=== PATIENT | female | born 1950 | race Caucasian/White ===

== ENCOUNTER 2022-08-01 13:23 | Inpatient (IN) | payer OTHER ==
[2022-08-01] MEDS ORDERED: BUMETANIDE INJECTION 1 MG/4 ML VIAL IVPUSH ONE (14:03)
[2022-08-01 15:25] LABS: VENOUS BASE EXCESS -3.1 mmol/L (-2-2); VENOUS O2 SATURATION 81.1 % (70-80); VENOUS PCO2 34.5 mmHg (38-52); VENOUS PH 7.402 (7.310-7.410)
[2022-08-01 15:35] LABS: BASO % 1.3 % (0-2.0); EOS % 6.9 % (0-4.5); HEMATOCRIT 34.4 % (32.4-45.2); HEMOGLOBIN 11.2 GM/dL (10.7-15.3); LYMPH % 8.9 % (8-40); MCH 28.4 pg (25.7-33.7); MCHC 32.5 g/dl (32.0-36.0); MEAN CELL VOLUME 87.5 fl (80-96); MEAN PLT VOLUME 8.1 fl (7.5-11.1); MONO % 8.6 % (3.8-10.2); NEUT % 74.3 % (42.8-82.8); PLATELET COUNT 447 10^3/uL (134-434); RBC 3.93 M/mm3 (3.60-5.2); WHITE BLOOD COUNT 7.7 K/mm3 (4.0-10.0)
[2022-08-01 15:47] LABS: INR 1.24 (0.83-1.09); PROTHROMBIN TIME (PATIENT) 14.3 SEC (9.7-13.0)
[2022-08-01 15:50] LABS: ACTIVATED PTT 36.6 SECONDS (25.2-36.5)
[2022-08-01 15:58] LABS: CHLORIDE 104 mmol/L (98-107); POTASSIUM 3.4 mmol/L (3.5-5.1); SODIUM 143 mmol/L (136-145)
[2022-08-01 16:00] LABS: ANION GAP 13 MMOL/L (8-16); CALCIUM 8.3 mg/dL (8.5-10.1); CO2 26 mmol/L (21-32)
[2022-08-01 16:01] LABS: ALBUMIN 2.9 g/dl (3.4-5.0); GLUCOSE,RANDOM 55 mg/dL (74-106)
[2022-08-01 16:04] LABS: CREATININE 1.8 mg/dL (0.55-1.3); SGOT/AST 17 U/L (15-37); SGPT/ALT 11 U/L (13-61)
[2022-08-01 16:05] LABS: BILIRUBIN,TOTAL 0.7 mg/dL (0.2-1); TOT PROT 6.7 g/dl (6.4-8.2)
[2022-08-01 16:06] LABS: ALK PHOS 66 U/L (45-117)
[2022-08-01 16:09] LABS: N-TERMINAL BNP 9950.7 pg/ml (5-125)
[2022-08-01 16:20] LABS: MAGNESIUM 0.9 mg/dL (1.8-2.4)
[2022-08-01] MEDS ORDERED: MAGNESIUM SULF 50% (8.12 MEQ/2 ML-1 GM VIAL) IVPB ONE ×2 (16:25→18:57)
[2022-08-01] MEDS ORDERED: MAGNESIUM SULFATE IN WATER 2 GM/50 ML IVPB IVPB ONE (16:50)
[2022-08-01 18:25] LABS: EPI CELLS 6 /uL (0-25.1); HYALINE CASTS 0 /uL (0-3.1); URINE APPEARANCE CLOUDY; URINE BACTERIA 7179 /uL (0-1359); URINE BILIRUBIN NEGATIVE (NEGATIVE); URINE COLOR YELLOW; URINE GLUCOSE (UA) TRACE (NEGATIVE); URINE KETONE NEGATIVE (NEGATIVE); URINE LEUK ESTERASE 3+ (NEGATIVE); URINE NITRITE NEGATIVE (NEGATIVE); URINE PROTEIN 1+ (NEGATIVE); URINE RBC 25 /uL (0-23.9); URINE UROBILINOGEN 0.2 mg/dL (0.2-1.0); URINE WBC 931 /uL (0-25.8)
[2022-08-01] MEDS ORDERED: POTASSIUM CHLORIDE TABS 20 MEQ TABLET.ER (FP) PO ONE (18:57)
[2022-08-01] MEDS ORDERED: RANOLAZINE E.R. 500 MG TABLET (FP) PO PRN (19:02)
[2022-08-01] MEDS: ATORVASTATIN CA 20 MG TABLET (FP) PO SCH (21:40)
[2022-08-01] MEDS: FENOFIBRIC ACID 135 MG CAP PO SCH (21:40)
[2022-08-01] MEDS: AMITRIPTYLINE HCL 25 MG TABLET PO SCH (21:40)
[2022-08-01] MEDS: ASPIRIN COATED 81 MG TABLET.EC PO SCH (21:40)
[2022-08-01] MEDS: CHOLECALCIFEROL (VIT D3) 1,000 UNIT (25 MCG) TABLET PO SCH (21:41)
[2022-08-01] MEDS: HEPARIN NA (PORCINE) 5,000 UNITS/ML 1ML VIAL SQ SCH (21:41)
[2022-08-01] MEDS: INSULIN SLIDING SCALE (NOVOLOG) 1 VIAL SQ SCH (21:41)
[2022-08-02] MEDS: INSULIN SLIDING SCALE (NOVOLOG) 1 VIAL SQ SCH ×4 (06:24→21:35)
[2022-08-02] MEDS: BUMETANIDE INJECTION 1 MG/4 ML VIAL IVPUSH SCH ×2 (06:29→14:42)
[2022-08-02] MEDS: HEPARIN NA (PORCINE) 5,000 UNITS/ML 1ML VIAL SQ SCH ×3 (06:29→21:26)
[2022-08-02 08:01] LABS: BASO % 0.9 % (0-2.0); EOS % 8.1 % (0-4.5); HEMATOCRIT 31.9 % (32.4-45.2); HEMOGLOBIN 10.6 GM/dL (10.7-15.3); LYMPH % 12.6 % (8-40); MCH 29.5 pg (25.7-33.7); MCHC 33.1 g/dl (32.0-36.0); MEAN PLT VOLUME 8.6 fl (7.5-11.1); MONO % 10.4 % (3.8-10.2); PLATELET COUNT 428 10^3/uL (134-434); RBC 3.58 M/mm3 (3.60-5.2); RDW 16.1 % (11.6-15.6); WHITE BLOOD COUNT 7.9 K/mm3 (4.0-10.0)
[2022-08-02 08:23] LABS: POTASSIUM 4.3 mmol/L (3.5-5.1)
[2022-08-02 08:27] LABS: CALCIUM 8.5 mg/dL (8.5-10.1); MAGNESIUM 1.9 mg/dL (1.8-2.4)
[2022-08-02 08:30] LABS: ALBUMIN 2.6 g/dl (3.4-5.0); BLOOD UREA NITROGEN 32.1 mg/dL (7-18)
[2022-08-02 08:31] LABS: CREATININE 1.7 mg/dL (0.55-1.3)
[2022-08-02 08:32] LABS: TOT PROT 6.1 g/dl (6.4-8.2)
[2022-08-02 08:33] LABS: PHOSPHOROUS 3.4 mg/dL (2.5-4.9)
[2022-08-02 08:34] LABS: BILIRUBIN,TOTAL 0.7 mg/dL (0.2-1)
[2022-08-02] MEDS: CYANOCOBALAMIN 1,000 MCG TABLET (FP) PO SCH (09:54)
[2022-08-02] MEDS: LACTOBACILLUS ACIDOPHILUS 1 TABLET PO SCH (09:54)
[2022-08-02] MEDS: ATENOLOL 25 MG TABLET (FP) PO SCH (09:54)
[2022-08-02] MEDS: METHIMAZOLE 5 MG TABLET PO SCH (09:55)
[2022-08-02] MEDS: LISINOPRIL 20 MG TABLET PO SCH (09:55)
[2022-08-02] MEDS: PANTOPRAZOLE SOD 40 MG SUSPENSION PACKET PO SCH (09:55)
[2022-08-02] MEDS ORDERED: SERTRALINE HCL 25 MG TABLET (FP) PO SCH (10:00)
[2022-08-02] MEDS: RANOLAZINE E.R. 500 MG TABLET (FP) PO SCH (21:25)
[2022-08-02] MEDS: CHOLECALCIFEROL (VIT D3) 1,000 UNIT (25 MCG) TABLET PO SCH (21:25)
[2022-08-02] MEDS: AMITRIPTYLINE HCL 25 MG TABLET PO SCH (21:27)
[2022-08-02] MEDS: ASPIRIN COATED 81 MG TABLET.EC PO SCH (21:28)
[2022-08-02] MEDS: ATORVASTATIN CA 20 MG TABLET (FP) PO SCH (21:28)
[2022-08-02] MEDS: FENOFIBRIC ACID 135 MG CAP PO SCH (21:29)
[2022-08-02] MEDS ORDERED: INSULIN (LEVEMIR) 100 UNITS/ML UNITS SQ SCH (22:00)
[2022-08-03] MEDS: HEPARIN NA (PORCINE) 5,000 UNITS/ML 1ML VIAL SQ SCH ×3 (06:15→21:25)
[2022-08-03] MEDS: BUMETANIDE INJECTION 1 MG/4 ML VIAL IVPUSH SCH ×2 (06:15→14:11)
[2022-08-03] MEDS: INSULIN SLIDING SCALE (NOVOLOG) 1 VIAL SQ SCH ×4 (06:28→21:29)
[2022-08-03] MEDS ORDERED: DEXTROSE 50%-WATER 25 GM/50 ML DISP.SYRIN IVPUSH PRN (07:22)
[2022-08-03] MEDS: ATENOLOL 25 MG TABLET (FP) PO SCH (09:22)
[2022-08-03] MEDS: LISINOPRIL 20 MG TABLET PO SCH (09:22)
[2022-08-03] MEDS: PANTOPRAZOLE SOD 40 MG SUSPENSION PACKET PO SCH (09:22)
[2022-08-03] MEDS: RANOLAZINE E.R. 500 MG TABLET (FP) PO SCH ×2 (09:22→21:24)
[2022-08-03] MEDS: CYANOCOBALAMIN 1,000 MCG TABLET (FP) PO SCH (09:22)
[2022-08-03] MEDS: LACTOBACILLUS ACIDOPHILUS 1 TABLET PO SCH (09:22)
[2022-08-03] MEDS: MULTIVITAMINS (DAILY MVI) TABLET (FP) PO SCH (09:26)
[2022-08-03] MEDS: METHIMAZOLE 5 MG TABLET PO SCH (09:26)
[2022-08-03] MEDS ORDERED: RANOLAZINE E.R. 500 MG TABLET (FP) PO SCH (10:00)
[2022-08-03 10:22] LABS: POTASSIUM 5.4 mmol/L (3.5-5.1)
[2022-08-03 10:23] LABS: BLOOD UREA NITROGEN 37.1 mg/dL (7-18); CALCIUM 8.8 mg/dL (8.5-10.1)
[2022-08-03 10:27] LABS: CREATININE 1.9 mg/dL (0.55-1.3)
[2022-08-03 10:31] LABS: N-TERMINAL BNP 5780.2 pg/ml (5-125)
[2022-08-03] MEDS ORDERED: SODIUM POLYSTYRENE SULFONATE 15 GM/60 ML BOTTLE PO ONE (12:56)
[2022-08-03] MEDS: ACETAMINOPHEN 325 MG TABLET (FP) PO PRN (21:23)
[2022-08-03] MEDS: ATORVASTATIN CA 20 MG TABLET (FP) PO SCH (21:24)
[2022-08-03] MEDS: CHOLECALCIFEROL (VIT D3) 1,000 UNIT (25 MCG) TABLET PO SCH (21:24)
[2022-08-03] MEDS: ASPIRIN COATED 81 MG TABLET.EC PO SCH (21:24)
[2022-08-03] MEDS: SENNOSIDES 8.6MG TABLET (FP) PO SCH (21:25)
[2022-08-03] MEDS: AMITRIPTYLINE HCL 25 MG TABLET PO SCH (21:31)
[2022-08-03] MEDS: FENOFIBRIC ACID 135 MG CAP PO SCH (21:31)
[2022-08-03] MEDS ORDERED: INSULIN (LEVEMIR) 100 UNITS/ML UNITS SQ SCH (22:00)
[2022-08-04] MEDS: HEPARIN NA (PORCINE) 5,000 UNITS/ML 1ML VIAL SQ SCH ×3 (06:15→22:35)
[2022-08-04] MEDS: BUMETANIDE INJECTION 1 MG/4 ML VIAL IVPUSH SCH ×2 (06:16→14:25)
[2022-08-04] MEDS: INSULIN SLIDING SCALE (NOVOLOG) 1 VIAL SQ SCH ×4 (06:23→22:34)
[2022-08-04] MEDS: ACETAMINOPHEN 325 MG TABLET (FP) PO PRN (06:23)
[2022-08-04 07:56] LABS: POTASSIUM 4.9 mmol/L (3.5-5.1)
[2022-08-04 07:58] LABS: ALBUMIN 2.4 g/dl (3.4-5.0); CALCIUM 8.5 mg/dL (8.5-10.1)
[2022-08-04 07:59] LABS: BLOOD UREA NITROGEN 45.4 mg/dL (7-18); MAGNESIUM 1.6 mg/dL (1.8-2.4)
[2022-08-04 08:02] LABS: CREATININE 2.5 mg/dL (0.55-1.3)
[2022-08-04 08:03] LABS: BILIRUBIN,TOTAL 0.8 mg/dL (0.2-1); TOT PROT 5.8 g/dl (6.4-8.2)
[2022-08-04 08:07] LABS: N-TERMINAL BNP 5327.9 pg/ml (5-125)
[2022-08-04] MEDS: ATENOLOL 25 MG TABLET (FP) PO SCH (10:14)
[2022-08-04] MEDS: RANOLAZINE E.R. 500 MG TABLET (FP) PO SCH ×2 (10:15→22:34)
[2022-08-04] MEDS: MULTIVITAMINS (DAILY MVI) TABLET (FP) PO SCH (10:15)
[2022-08-04] MEDS: LACTOBACILLUS ACIDOPHILUS 1 TABLET PO SCH (10:15)
[2022-08-04] MEDS: PANTOPRAZOLE SOD 40 MG SUSPENSION PACKET PO SCH (10:15)
[2022-08-04] MEDS: LISINOPRIL 20 MG TABLET PO SCH (10:15)
[2022-08-04] MEDS: CYANOCOBALAMIN 1,000 MCG TABLET (FP) PO SCH (10:15)
[2022-08-04] MEDS: METHIMAZOLE 5 MG TABLET PO SCH (10:16)
[2022-08-04] MEDS: LIDOCAINE 5% TOPICAL PATCH TP SCH (14:29)
[2022-08-04 16:11] LABS: EPI CELLS 26 /uL (0-25.1); HYALINE CASTS 20 /uL (0-3.1); URINE APPEARANCE TURBID; URINE BACTERIA >9,000 /uL (0-1359); URINE BILIRUBIN 1+ (NEGATIVE); URINE COLOR DK YELLOW; URINE GLUCOSE (UA) NEGATIVE (NEGATIVE); URINE KETONE TRACE (NEGATIVE); URINE LEUK ESTERASE 3+ (NEGATIVE); URINE NITRITE NEGATIVE (NEGATIVE); URINE PROTEIN 1+ (NEGATIVE); URINE RBC 214 /uL (0-23.9); URINE WBC 16311 /uL (0-25.8)
[2022-08-04] MEDS ORDERED: MAGNESIUM SULF 50% (8.12 MEQ/2 ML-1 GM VIAL) IVPB ONE (18:10)
[2022-08-04] MEDS: AMITRIPTYLINE HCL 25 MG TABLET PO SCH (22:33)
[2022-08-04] MEDS: ATORVASTATIN CA 20 MG TABLET (FP) PO SCH (22:34)
[2022-08-04] MEDS: CHOLECALCIFEROL (VIT D3) 1,000 UNIT (25 MCG) TABLET PO SCH (22:34)
[2022-08-04] MEDS: ASPIRIN COATED 81 MG TABLET.EC PO SCH (22:34)
[2022-08-04] MEDS: LIDOCAINE PATCH REMOVAL MC SCH (22:35)
[2022-08-04] MEDS: SENNOSIDES 8.6MG TABLET (FP) PO SCH (22:35)
[2022-08-04] MEDS: FENOFIBRIC ACID 135 MG CAP PO SCH (22:36)
[2022-08-05] MEDS: ACETAMINOPHEN 325 MG TABLET (FP) PO PRN (00:38)
[2022-08-05] MEDS: guaiFENesin 200 MG/10 ML 10 ML UNIT-DOSE CUPS PO PRN ×3 (02:31→17:24)
[2022-08-05] MEDS: BUMETANIDE INJECTION 1 MG/4 ML VIAL IVPUSH SCH ×2 (05:11→13:03)
[2022-08-05] MEDS: HEPARIN NA (PORCINE) 5,000 UNITS/ML 1ML VIAL SQ SCH ×3 (05:11→21:14)
[2022-08-05] MEDS: INSULIN SLIDING SCALE (NOVOLOG) 1 VIAL SQ SCH ×4 (06:58→21:17)
[2022-08-05 08:00] LABS: POTASSIUM 4.2 mmol/L (3.5-5.1)
[2022-08-05 08:03] LABS: BLOOD UREA NITROGEN 48.1 mg/dL (7-18); CALCIUM 8.7 mg/dL (8.5-10.1)
[2022-08-05 08:04] LABS: MAGNESIUM 1.9 mg/dL (1.8-2.4)
[2022-08-05 08:07] LABS: CREATININE 2.4 mg/dL (0.55-1.3)
[2022-08-05] MEDS: LIDOCAINE 5% TOPICAL PATCH TP SCH (09:29)
[2022-08-05] MEDS: RANOLAZINE E.R. 500 MG TABLET (FP) PO SCH ×2 (09:30→21:12)
[2022-08-05] MEDS: LACTOBACILLUS ACIDOPHILUS 1 TABLET PO SCH (09:30)
[2022-08-05] MEDS: MULTIVITAMINS (DAILY MVI) TABLET (FP) PO SCH (09:30)
[2022-08-05] MEDS: CYANOCOBALAMIN 1,000 MCG TABLET (FP) PO SCH (09:30)
[2022-08-05] MEDS: ATENOLOL 25 MG TABLET (FP) PO SCH (09:30)
[2022-08-05] MEDS: METHIMAZOLE 5 MG TABLET PO SCH (09:32)
[2022-08-05] MEDS: PANTOPRAZOLE SOD 40 MG SUSPENSION PACKET PO SCH (09:32)
[2022-08-05] MEDS: POLYETHYLENE GLYCOL (HEALTHYLAX) 3350 17 GM PACKET PO SCH (17:24)
[2022-08-05] MEDS: CHOLECALCIFEROL (VIT D3) 1,000 UNIT (25 MCG) TABLET PO SCH (21:13)
[2022-08-05] MEDS: ASPIRIN COATED 81 MG TABLET.EC PO SCH (21:13)
[2022-08-05] MEDS: FENOFIBRIC ACID 135 MG CAP PO SCH (21:13)
[2022-08-05] MEDS: SENNOSIDES 8.6MG TABLET (FP) PO SCH (21:13)
[2022-08-05] MEDS: ATORVASTATIN CA 20 MG TABLET (FP) PO SCH (21:13)
[2022-08-05] MEDS: AMITRIPTYLINE HCL 25 MG TABLET PO SCH (22:35)
[2022-08-05] MEDS: LIDOCAINE PATCH REMOVAL MC SCH (22:35)
[2022-08-06] MEDS: BUMETANIDE INJECTION 1 MG/4 ML VIAL IVPUSH SCH ×2 (05:54→13:47)
[2022-08-06] MEDS: HEPARIN NA (PORCINE) 5,000 UNITS/ML 1ML VIAL SQ SCH ×3 (05:54→21:47)
[2022-08-06] MEDS: INSULIN SLIDING SCALE (NOVOLOG) 1 VIAL SQ SCH ×4 (06:06→21:48)
[2022-08-06] MEDS: LIDOCAINE 5% TOPICAL PATCH TP SCH (09:06)
[2022-08-06] MEDS: CYANOCOBALAMIN 1,000 MCG TABLET (FP) PO SCH (09:06)
[2022-08-06] MEDS: ATENOLOL 25 MG TABLET (FP) PO SCH (09:06)
[2022-08-06] MEDS: LACTOBACILLUS ACIDOPHILUS 1 TABLET PO SCH (09:06)
[2022-08-06] MEDS: MULTIVITAMINS (DAILY MVI) TABLET (FP) PO SCH (09:06)
[2022-08-06] MEDS: PANTOPRAZOLE SOD 40 MG SUSPENSION PACKET PO SCH (09:06)
[2022-08-06] MEDS: RANOLAZINE E.R. 500 MG TABLET (FP) PO SCH ×2 (09:06→21:46)
[2022-08-06] MEDS: METHIMAZOLE 5 MG TABLET PO SCH (09:07)
[2022-08-06] MEDS: ACETAMINOPHEN 325 MG TABLET (FP) PO PRN ×2 (09:10→21:48)
[2022-08-06] MEDS: guaiFENesin 200 MG/10 ML 10 ML UNIT-DOSE CUPS PO PRN ×3 (09:10→23:31)
[2022-08-06 09:16] LABS: POTASSIUM 4.3 mmol/L (3.5-5.1)
[2022-08-06 09:21] LABS: CALCIUM 8.8 mg/dL (8.5-10.1)
[2022-08-06 09:22] LABS: BLOOD UREA NITROGEN 50.2 mg/dL (7-18)
[2022-08-06] MEDS: POLYETHYLENE GLYCOL (HEALTHYLAX) 3350 17 GM PACKET PO SCH ×4 (14:58→22:00)
[2022-08-06 14:59] VITALS: BMI 40.1
[2022-08-06] MEDS ORDERED: COLCHICINE 0.6 MG CAP PO ONE ×2 (16:51→18:00)
[2022-08-06] MEDS ORDERED: COLCHICINE 0.6 MG TAB PO ONE ×3 (17:30→18:45)
[2022-08-06] MEDS: ASPIRIN COATED 81 MG TABLET.EC PO SCH (21:46)
[2022-08-06] MEDS: ATORVASTATIN CA 20 MG TABLET (FP) PO SCH (21:46)
[2022-08-06] MEDS: FENOFIBRIC ACID 135 MG CAP PO SCH (21:47)
[2022-08-06] MEDS: CHOLECALCIFEROL (VIT D3) 1,000 UNIT (25 MCG) TABLET PO SCH (21:47)
[2022-08-06] MEDS: SENNOSIDES 8.6MG TABLET (FP) PO SCH (21:47)
[2022-08-06] MEDS: AMITRIPTYLINE HCL 25 MG TABLET PO SCH (21:49)
[2022-08-06] MEDS: LIDOCAINE PATCH REMOVAL MC SCH (22:11)
[2022-08-07] MEDS: BUMETANIDE INJECTION 1 MG/4 ML VIAL IVPUSH SCH ×2 (05:44→14:42)
[2022-08-07] MEDS: HEPARIN NA (PORCINE) 5,000 UNITS/ML 1ML VIAL SQ SCH ×3 (05:44→22:11)
[2022-08-07] MEDS: guaiFENesin 200 MG/10 ML 10 ML UNIT-DOSE CUPS PO PRN ×2 (05:50→14:45)
[2022-08-07] MEDS: INSULIN SLIDING SCALE (NOVOLOG) 1 VIAL SQ SCH ×4 (06:56→22:13)
[2022-08-07 07:32] LABS: CHLORIDE 103 mmol/L (98-107); POTASSIUM 5.1 mmol/L (3.5-5.1); SODIUM 139 mmol/L (136-145)
[2022-08-07 07:35] LABS: ANION GAP 10 MMOL/L (8-16); BLOOD UREA NITROGEN 56.2 mg/dL (7-18); CALCIUM 8.9 mg/dL (8.5-10.1); CO2 26 mmol/L (21-32); GLUCOSE,RANDOM 141 mg/dL (74-106)
[2022-08-07 07:39] LABS: CREATININE 2.3 mg/dL (0.55-1.3)
[2022-08-07 07:50] LABS: URIC ACID 13.3 mg/dL (2.6-7.2)
[2022-08-07] MEDS: PANTOPRAZOLE SOD 40 MG SUSPENSION PACKET PO SCH (10:00)
[2022-08-07] MEDS: RANOLAZINE E.R. 500 MG TABLET (FP) PO SCH ×2 (10:00→22:12)
[2022-08-07] MEDS: MULTIVITAMINS (DAILY MVI) TABLET (FP) PO SCH (10:00)
[2022-08-07] MEDS: POLYETHYLENE GLYCOL (HEALTHYLAX) 3350 17 GM PACKET PO SCH ×2 (10:00→22:11)
[2022-08-07] MEDS: CYANOCOBALAMIN 1,000 MCG TABLET (FP) PO SCH (10:00)
[2022-08-07] MEDS: LACTOBACILLUS ACIDOPHILUS 1 TABLET PO SCH (10:00)
[2022-08-07] MEDS: ATENOLOL 25 MG TABLET (FP) PO SCH (10:00)
[2022-08-07] MEDS: LIDOCAINE 5% TOPICAL PATCH TP SCH (10:01)
[2022-08-07] MEDS: METHIMAZOLE 5 MG TABLET PO SCH (10:05)
[2022-08-07] MEDS: ACETAMINOPHEN 325 MG TABLET (FP) PO PRN (10:05)
[2022-08-07] MEDS ORDERED: COLCHICINE 0.6 MG TAB PO SCH (16:15)
[2022-08-07] MEDS: CHOLECALCIFEROL (VIT D3) 1,000 UNIT (25 MCG) TABLET PO SCH (22:11)
[2022-08-07] MEDS: FENOFIBRIC ACID 135 MG CAP PO SCH (22:11)
[2022-08-07] MEDS: ASPIRIN COATED 81 MG TABLET.EC PO SCH (22:11)
[2022-08-07] MEDS: AMITRIPTYLINE HCL 25 MG TABLET PO SCH (22:11)
[2022-08-07] MEDS: SENNOSIDES 8.6MG TABLET (FP) PO SCH (22:11)
[2022-08-07] MEDS: ATORVASTATIN CA 20 MG TABLET (FP) PO SCH (22:12)
[2022-08-07] MEDS: LIDOCAINE PATCH REMOVAL MC SCH (22:13)
[2022-08-08] MEDS: guaiFENesin 200 MG/10 ML 10 ML UNIT-DOSE CUPS PO PRN (01:18)
[2022-08-08] MEDS: HEPARIN NA (PORCINE) 5,000 UNITS/ML 1ML VIAL SQ SCH ×3 (05:51→21:53)
[2022-08-08] MEDS: BUMETANIDE INJECTION 1 MG/4 ML VIAL IVPUSH SCH ×2 (05:51→14:02)
[2022-08-08] MEDS: INSULIN SLIDING SCALE (NOVOLOG) 1 VIAL SQ SCH ×4 (06:03→22:04)
[2022-08-08 07:54] LABS: POTASSIUM 5.2 mmol/L (3.5-5.1)
[2022-08-08 07:57] LABS: HEMATOCRIT 30.7 % (32.4-45.2); HEMOGLOBIN 9.9 GM/dL (10.7-15.3); MCH 29.1 pg (25.7-33.7); MCHC 32.4 g/dl (32.0-36.0); MEAN CELL VOLUME 89.8 fl (80-96); MEAN PLT VOLUME 7.9 fl (7.5-11.1); PLATELET COUNT 535 10^3/uL (134-434); RBC 3.41 M/mm3 (3.60-5.2); RDW 15.5 % (11.6-15.6); WHITE BLOOD COUNT 7.6 K/mm3 (4.0-10.0)
[2022-08-08 08:00] LABS: CREATININE 2.2 mg/dL (0.55-1.3)
[2022-08-08] MEDS ORDERED: LIDOCAINE HCL 2% (50ML VIAL) SQ ONE (11:32)
[2022-08-08] MEDS: PANTOPRAZOLE SOD 40 MG SUSPENSION PACKET PO SCH (11:51)
[2022-08-08] MEDS: CYANOCOBALAMIN 1,000 MCG TABLET (FP) PO SCH (11:51)
[2022-08-08] MEDS: MULTIVITAMINS (DAILY MVI) TABLET (FP) PO SCH (11:51)
[2022-08-08] MEDS: ATENOLOL 25 MG TABLET (FP) PO SCH (11:51)
[2022-08-08] MEDS: predniSONE 20 MG TABLET (UD) PO SCH (11:51)
[2022-08-08] MEDS: LIDOCAINE 5% TOPICAL PATCH TP SCH (11:52)
[2022-08-08] MEDS: RANOLAZINE E.R. 500 MG TABLET (FP) PO SCH ×2 (11:52→21:53)
[2022-08-08] MEDS: POLYETHYLENE GLYCOL (HEALTHYLAX) 3350 17 GM PACKET PO SCH ×2 (11:52→21:54)
[2022-08-08] MEDS: LACTOBACILLUS ACIDOPHILUS 1 TABLET PO SCH (11:52)
[2022-08-08] MEDS: METHIMAZOLE 5 MG TABLET PO SCH (11:56)
[2022-08-08] MEDS ORDERED: LIDOCAINE HCL 2% (20ML MULTI-DOSE VIAL) INF ONE (12:15)
[2022-08-08 13:23] LABS: ALBUMIN 2.3 g/dl (3.4-5.0)
[2022-08-08 13:44] LABS: BF WBC & OTHER NUCLEATED CELLS 929 /mm3
[2022-08-08 14:20] LABS: BODY FLUID MACROPHAGES 28 %
[2022-08-08] MEDS: MEROPENEM 1 GM in DEXTROSE 5%-WATER 100 ML IVPB SCH (19:54)
[2022-08-08] MEDS: LIDOCAINE PATCH REMOVAL MC SCH (21:53)
[2022-08-08] MEDS: SENNOSIDES 8.6MG TABLET (FP) PO SCH (21:53)
[2022-08-08] MEDS: CHOLECALCIFEROL (VIT D3) 1,000 UNIT (25 MCG) TABLET PO SCH (21:53)
[2022-08-08] MEDS: ATORVASTATIN CA 20 MG TABLET (FP) PO SCH (21:53)
[2022-08-08] MEDS: AMITRIPTYLINE HCL 25 MG TABLET PO SCH (21:54)
[2022-08-08] MEDS: ASPIRIN COATED 81 MG TABLET.EC PO SCH (21:54)
[2022-08-08] MEDS: FENOFIBRIC ACID 135 MG CAP PO SCH (21:55)
[2022-08-09] MEDS: HEPARIN NA (PORCINE) 5,000 UNITS/ML 1ML VIAL SQ SCH ×3 (05:40→22:45)
[2022-08-09] MEDS: MEROPENEM 1 GM in DEXTROSE 5%-WATER 100 ML IVPB SCH ×2 (05:40→17:09)
[2022-08-09] MEDS: BUMETANIDE INJECTION 1 MG/4 ML VIAL IVPUSH SCH ×2 (05:43→13:54)
[2022-08-09] MEDS: BENZOCAINE/MENTH/CETYLPYRD CL 1 EACH LOZENGE MM PRN ×2 (05:55→22:45)
[2022-08-09] MEDS: guaiFENesin 200 MG/10 ML 10 ML UNIT-DOSE CUPS PO PRN ×3 (05:55→14:11)
[2022-08-09] MEDS: INSULIN SLIDING SCALE (NOVOLOG) 1 VIAL SQ SCH ×4 (07:01→22:45)
[2022-08-09] MEDS: PANTOPRAZOLE SOD 40 MG SUSPENSION PACKET PO SCH (09:33)
[2022-08-09] MEDS: POLYETHYLENE GLYCOL (HEALTHYLAX) 3350 17 GM PACKET PO SCH ×3 (09:33→22:45)
[2022-08-09] MEDS: LIDOCAINE 5% TOPICAL PATCH TP SCH (09:33)
[2022-08-09] MEDS: LACTOBACILLUS ACIDOPHILUS 1 TABLET PO SCH (09:35)
[2022-08-09] MEDS: METHIMAZOLE 5 MG TABLET PO SCH (09:35)
[2022-08-09] MEDS: RANOLAZINE E.R. 500 MG TABLET (FP) PO SCH ×2 (09:35→22:44)
[2022-08-09] MEDS: predniSONE 20 MG TABLET (UD) PO SCH (09:36)
[2022-08-09] MEDS: ATENOLOL 25 MG TABLET (FP) PO SCH (09:36)
[2022-08-09] MEDS: MULTIVITAMINS (DAILY MVI) TABLET (FP) PO SCH (09:36)
[2022-08-09] MEDS: CYANOCOBALAMIN 1,000 MCG TABLET (FP) PO SCH (09:36)
[2022-08-09 09:46] LABS: BASO % 0.5 % (0-2.0); EOS % 0.4 % (0-4.5); HEMATOCRIT 29.1 % (32.4-45.2); HEMOGLOBIN 9.6 GM/dL (10.7-15.3); LYMPH % 7.4 % (8-40); MCH 29.2 pg (25.7-33.7); MCHC 32.9 g/dl (32.0-36.0); MEAN CELL VOLUME 88.7 fl (80-96); MEAN PLT VOLUME 7.6 fl (7.5-11.1); MONO % 6.1 % (3.8-10.2); NEUT % 85.6 % (42.8-82.8); PLATELET COUNT 530 10^3/uL (134-434); RBC 3.28 M/mm3 (3.60-5.2); RDW 15.5 % (11.6-15.6); WHITE BLOOD COUNT 7.3 K/mm3 (4.0-10.0)
[2022-08-09 09:56] LABS: BLOOD UREA NITROGEN 62.1 mg/dL (7-18); CALCIUM 9.1 mg/dL (8.5-10.1); CREATININE 2.2 mg/dL (0.55-1.3); MAGNESIUM 1.7 mg/dL (1.8-2.4); POTASSIUM 4.7 mmol/L (3.5-5.1)
[2022-08-09] MEDS ORDERED: MAGNESIUM SULF 50% (8.12 MEQ/2 ML-1 GM VIAL) IVPB ONE (11:15)
[2022-08-09 16:10] LABS: BODY FLUID ALBUMIN 2.2 g/dL (Not Estab.)
[2022-08-09] MEDS: LIDOCAINE PATCH REMOVAL MC SCH (22:00)
[2022-08-09] MEDS: AMITRIPTYLINE HCL 25 MG TABLET PO SCH (22:43)
[2022-08-09] MEDS: ATORVASTATIN CA 20 MG TABLET (FP) PO SCH (22:44)
[2022-08-09] MEDS: SENNOSIDES 8.6MG TABLET (FP) PO SCH (22:44)
[2022-08-09] MEDS: CHOLECALCIFEROL (VIT D3) 1,000 UNIT (25 MCG) TABLET PO SCH (22:44)
[2022-08-09] MEDS: FENOFIBRIC ACID 135 MG CAP PO SCH (22:44)
[2022-08-09] MEDS: ASPIRIN COATED 81 MG TABLET.EC PO SCH (22:44)
[2022-08-10] MEDS: INSULIN SLIDING SCALE (NOVOLOG) 1 VIAL SQ SCH ×4 (06:18→22:25)
[2022-08-10] MEDS: MEROPENEM 1 GM in DEXTROSE 5%-WATER 100 ML IVPB SCH ×2 (06:18→17:37)
[2022-08-10] MEDS: HEPARIN NA (PORCINE) 5,000 UNITS/ML 1ML VIAL SQ SCH ×3 (06:18→21:49)
[2022-08-10] MEDS: BUMETANIDE INJECTION 1 MG/4 ML VIAL IVPUSH SCH ×2 (06:18→14:03)
[2022-08-10 07:39] LABS: HEMOGLOBIN 9.9 GM/dL (10.7-15.3); MCH 28.7 pg (25.7-33.7); MCHC 32.1 g/dl (32.0-36.0); MEAN CELL VOLUME 89.6 fl (80-96); MEAN PLT VOLUME 7.8 fl (7.5-11.1); PLATELET COUNT 571 10^3/uL (134-434); RBC 3.46 M/mm3 (3.60-5.2); RDW 15.5 % (11.6-15.6); WHITE BLOOD COUNT 8.2 K/mm3 (4.0-10.0)
[2022-08-10 08:00] LABS: POTASSIUM 4.7 mmol/L (3.5-5.1)
[2022-08-10 08:17] LABS: CALCIUM 9.2 mg/dL (8.5-10.1)
[2022-08-10 08:18] LABS: BLOOD UREA NITROGEN 71.9 mg/dL (7-18); MAGNESIUM 1.7 mg/dL (1.8-2.4)
[2022-08-10 08:21] LABS: CREATININE 2.1 mg/dL (0.55-1.3)
[2022-08-10] MEDS ORDERED: MAGNESIUM SULF 50% (8.12 MEQ/2 ML-1 GM VIAL) IVPB ONE (08:30)
[2022-08-10] MEDS: POLYETHYLENE GLYCOL (HEALTHYLAX) 3350 17 GM PACKET PO SCH ×2 (09:29→21:48)
[2022-08-10] MEDS: guaiFENesin 200 MG/10 ML 10 ML UNIT-DOSE CUPS PO PRN (09:29)
[2022-08-10] MEDS: METHIMAZOLE 5 MG TABLET PO SCH (09:30)
[2022-08-10] MEDS: LACTOBACILLUS ACIDOPHILUS 1 TABLET PO SCH (09:30)
[2022-08-10] MEDS: MULTIVITAMINS (DAILY MVI) TABLET (FP) PO SCH (09:31)
[2022-08-10] MEDS: CARVEDILOL 12.5 MG TABLET (FP) PO SCH ×2 (09:32→21:46)
[2022-08-10] MEDS: CYANOCOBALAMIN 1,000 MCG TABLET (FP) PO SCH (09:32)
[2022-08-10] MEDS: RANOLAZINE E.R. 500 MG TABLET (FP) PO SCH ×2 (09:32→21:47)
[2022-08-10] MEDS: PANTOPRAZOLE SOD 40 MG SUSPENSION PACKET PO SCH (09:32)
[2022-08-10] MEDS: predniSONE 20 MG TABLET (UD) PO SCH (09:32)
[2022-08-10] MEDS: LIDOCAINE 5% TOPICAL PATCH TP SCH (09:33)
[2022-08-10 10:08] LABS: ANISOCYTOSIS 0; HELMET CELLS 0; HOWELL-JOLLY BODIES 0; MACROCYTOSIS 0; OVALOCYTE 0; ROULEAU 0; SICKELED CELLS 0; TARGET CELLS 0; TEAR DROP CELLS 0; TOXIC GRANULATION 0
[2022-08-10] MEDS: CHOLECALCIFEROL (VIT D3) 1,000 UNIT (25 MCG) TABLET PO SCH (21:39)
[2022-08-10] MEDS: ATORVASTATIN CA 80 MG TABLET (FP) PO SCH (21:44)
[2022-08-10] MEDS: ASPIRIN COATED 81 MG TABLET.EC PO SCH (21:47)
[2022-08-10] MEDS: LIDOCAINE PATCH REMOVAL MC SCH (21:48)
[2022-08-10] MEDS: AMITRIPTYLINE HCL 25 MG TABLET PO SCH (21:48)
[2022-08-10] MEDS: SENNOSIDES 8.6MG TABLET (FP) PO SCH (21:51)
[2022-08-10] MEDS: FENOFIBRIC ACID 135 MG CAP PO SCH (22:25)
[2022-08-11] MEDS: MEROPENEM 1 GM in DEXTROSE 5%-WATER 100 ML IVPB SCH (06:08)
[2022-08-11] MEDS: HEPARIN NA (PORCINE) 5,000 UNITS/ML 1ML VIAL SQ SCH ×3 (06:08→22:21)
[2022-08-11] MEDS: BUMETANIDE INJECTION 1 MG/4 ML VIAL IVPUSH SCH ×2 (06:10→13:16)
[2022-08-11] MEDS: INSULIN SLIDING SCALE (NOVOLOG) 1 VIAL SQ SCH ×4 (06:31→22:22)
[2022-08-11 08:19] LABS: POTASSIUM 4.3 mmol/L (3.5-5.1)
[2022-08-11 08:22] LABS: CALCIUM 9.1 mg/dL (8.5-10.1)
[2022-08-11 08:23] LABS: BLOOD UREA NITROGEN 77.8 mg/dL (7-18)
[2022-08-11 08:26] LABS: CREATININE 1.9 mg/dL (0.55-1.3)
[2022-08-11] MEDS: MULTIVITAMINS (DAILY MVI) TABLET (FP) PO SCH (09:07)
[2022-08-11] MEDS: predniSONE 20 MG TABLET (UD) PO SCH (09:07)
[2022-08-11] MEDS: PANTOPRAZOLE SOD 40 MG SUSPENSION PACKET PO SCH (09:07)
[2022-08-11] MEDS: RANOLAZINE E.R. 500 MG TABLET (FP) PO SCH ×2 (09:08→22:20)
[2022-08-11] MEDS: CYANOCOBALAMIN 1,000 MCG TABLET (FP) PO SCH (09:08)
[2022-08-11] MEDS: LACTOBACILLUS ACIDOPHILUS 1 TABLET PO SCH (09:08)
[2022-08-11] MEDS: METHIMAZOLE 5 MG TABLET PO SCH (09:08)
[2022-08-11] MEDS: CARVEDILOL 12.5 MG TABLET (FP) PO SCH ×2 (09:08→22:19)
[2022-08-11] MEDS: POLYETHYLENE GLYCOL (HEALTHYLAX) 3350 17 GM PACKET PO SCH ×2 (09:08→22:21)
[2022-08-11] MEDS: LIDOCAINE 5% TOPICAL PATCH TP SCH (09:11)
[2022-08-11 09:32] LABS: MAGNESIUM 2.1 mg/dL (1.8-2.4)
[2022-08-11 10:54] LABS: EPI CELLS 2 /uL (0-25.1); HYALINE CASTS 0 /uL (0-3.1); PH,URINE 5.5 (5.0-8.0); URINE APPEARANCE CLEAR; URINE BACTERIA 1 /uL (0-1359); URINE BILIRUBIN NEGATIVE (NEGATIVE); URINE COLOR YELLOW; URINE GLUCOSE (UA) TRACE (NEGATIVE); URINE KETONE NEGATIVE (NEGATIVE); URINE LEUK ESTERASE 1+ (NEGATIVE); URINE NITRITE NEGATIVE (NEGATIVE); URINE PROTEIN NEGATIVE (NEGATIVE); URINE RBC 98 /uL (0-23.9); URINE UROBILINOGEN 0.2 mg/dL (0.2-1.0); URINE WBC 138 /uL (0-25.8)
[2022-08-11] MEDS ORDERED: MEROPENEM 1 GM in DEXTROSE 5%-WATER 100 ML IVPB ONE (21:21)
[2022-08-11] MEDS: ASPIRIN COATED 81 MG TABLET.EC PO SCH (22:19)
[2022-08-11] MEDS: ATORVASTATIN CA 80 MG TABLET (FP) PO SCH (22:19)
[2022-08-11] MEDS: SENNOSIDES 8.6MG TABLET (FP) PO SCH (22:20)
[2022-08-11] MEDS: FENOFIBRIC ACID 135 MG CAP PO SCH (22:20)
[2022-08-11] MEDS: CHOLECALCIFEROL (VIT D3) 1,000 UNIT (25 MCG) TABLET PO SCH (22:20)
[2022-08-11] MEDS: AMITRIPTYLINE HCL 25 MG TABLET PO SCH (22:20)
[2022-08-11] MEDS: LIDOCAINE PATCH REMOVAL MC SCH (22:22)
[2022-08-11] MEDS: guaiFENesin 200 MG/10 ML 10 ML UNIT-DOSE CUPS PO PRN (23:28)
[2022-08-12] MEDS: guaiFENesin 200 MG/10 ML 10 ML UNIT-DOSE CUPS PO PRN (04:10)
[2022-08-12] MEDS: HEPARIN NA (PORCINE) 5,000 UNITS/ML 1ML VIAL SQ SCH ×3 (06:32→21:24)
[2022-08-12] MEDS: BUMETANIDE INJECTION 1 MG/4 ML VIAL IVPUSH SCH ×2 (06:32→15:07)
[2022-08-12] MEDS: INSULIN SLIDING SCALE (NOVOLOG) 1 VIAL SQ SCH ×4 (06:33→21:25)
[2022-08-12 08:00] LABS: HEMOGLOBIN 10.1 GM/dL (10.7-15.3); MCH 28.6 pg (25.7-33.7); MCHC 32.6 g/dl (32.0-36.0); MEAN CELL VOLUME 87.6 fl (80-96); MEAN PLT VOLUME 7.9 fl (7.5-11.1); PLATELET COUNT 467 10^3/uL (134-434); RBC 3.53 M/mm3 (3.60-5.2); RDW 15.6 % (11.6-15.6); WHITE BLOOD COUNT 9.2 K/mm3 (4.0-10.0)
[2022-08-12 08:08] LABS: POTASSIUM 4.6 mmol/L (3.5-5.1)
[2022-08-12 08:09] LABS: BLOOD UREA NITROGEN 80.5 mg/dL (7-18); CALCIUM 9.6 mg/dL (8.5-10.1)
[2022-08-12 08:13] LABS: CREATININE 1.9 mg/dL (0.55-1.3)
[2022-08-12] MEDS: LACTOBACILLUS ACIDOPHILUS 1 TABLET PO SCH (10:17)
[2022-08-12] MEDS: MULTIVITAMINS (DAILY MVI) TABLET (FP) PO SCH (10:17)
[2022-08-12] MEDS: predniSONE 20 MG TABLET (UD) PO SCH (10:19)
[2022-08-12] MEDS: CARVEDILOL 12.5 MG TABLET (FP) PO SCH ×2 (10:19→21:24)
[2022-08-12] MEDS: CYANOCOBALAMIN 1,000 MCG TABLET (FP) PO SCH (10:19)
[2022-08-12] MEDS: RANOLAZINE E.R. 500 MG TABLET (FP) PO SCH ×2 (10:19→21:23)
[2022-08-12] MEDS: PANTOPRAZOLE SOD 40 MG SUSPENSION PACKET PO SCH (10:20)
[2022-08-12] MEDS: POLYETHYLENE GLYCOL (HEALTHYLAX) 3350 17 GM PACKET PO SCH ×2 (10:20→21:25)
[2022-08-12] MEDS: LIDOCAINE 5% TOPICAL PATCH TP SCH (10:21)
[2022-08-12] MEDS: METHIMAZOLE 5 MG TABLET PO SCH (10:21)
[2022-08-12] MEDS: AMITRIPTYLINE HCL 25 MG TABLET PO SCH (21:23)
[2022-08-12] MEDS: ATORVASTATIN CA 80 MG TABLET (FP) PO SCH (21:23)
[2022-08-12] MEDS: ASPIRIN COATED 81 MG TABLET.EC PO SCH (21:24)
[2022-08-12] MEDS: SENNOSIDES 8.6MG TABLET (FP) PO SCH (21:24)
[2022-08-12] MEDS: CHOLECALCIFEROL (VIT D3) 1,000 UNIT (25 MCG) TABLET PO SCH (21:24)
[2022-08-12] MEDS: FENOFIBRIC ACID 135 MG CAP PO SCH (21:24)
[2022-08-12] MEDS: LIDOCAINE PATCH REMOVAL MC SCH (21:25)
[2022-08-13] MEDS: BUMETANIDE INJECTION 1 MG/4 ML VIAL IVPUSH SCH ×2 (06:38→16:50)
[2022-08-13] MEDS: INSULIN SLIDING SCALE (NOVOLOG) 1 VIAL SQ SCH ×4 (06:46→22:38)
[2022-08-13] MEDS: HEPARIN NA (PORCINE) 5,000 UNITS/ML 1ML VIAL SQ SCH ×3 (06:48→22:38)
[2022-08-13 08:02] LABS: POTASSIUM 4.9 mmol/L (3.5-5.1)
[2022-08-13 08:06] LABS: CALCIUM 9.5 mg/dL (8.5-10.1)
[2022-08-13 08:08] LABS: ALBUMIN 2.3 g/dl (3.4-5.0); BLOOD UREA NITROGEN 95.5 mg/dL (7-18)
[2022-08-13 08:10] LABS: CREATININE 1.9 mg/dL (0.55-1.3)
[2022-08-13 08:12] LABS: BILIRUBIN,TOTAL 0.6 mg/dL (0.2-1); TOT PROT 5.4 g/dl (6.4-8.2)
[2022-08-13 08:31] LABS: HEMATOCRIT 30.6 % (32.4-45.2); HEMOGLOBIN 9.9 GM/dL (10.7-15.3); MCH 28.8 pg (25.7-33.7); MCHC 32.6 g/dl (32.0-36.0); MEAN CELL VOLUME 88.3 fl (80-96); MEAN PLT VOLUME 8.9 fl (7.5-11.1); PLATELET COUNT 426 10^3/uL (134-434); RBC 3.46 M/mm3 (3.60-5.2); RDW 15.3 % (11.6-15.6); WHITE BLOOD COUNT 9.2 K/mm3 (4.0-10.0)
[2022-08-13] MEDS: RANOLAZINE E.R. 500 MG TABLET (FP) PO SCH ×2 (11:16→22:37)
[2022-08-13] MEDS: CARVEDILOL 12.5 MG TABLET (FP) PO SCH ×2 (11:16→22:38)
[2022-08-13] MEDS: LACTOBACILLUS ACIDOPHILUS 1 TABLET PO SCH (11:16)
[2022-08-13] MEDS: POLYETHYLENE GLYCOL (HEALTHYLAX) 3350 17 GM PACKET PO SCH ×2 (11:16→22:39)
[2022-08-13] MEDS: MULTIVITAMINS (DAILY MVI) TABLET (FP) PO SCH (11:17)
[2022-08-13] MEDS: CYANOCOBALAMIN 1,000 MCG TABLET (FP) PO SCH (11:17)
[2022-08-13] MEDS: PANTOPRAZOLE SOD 40 MG SUSPENSION PACKET PO SCH (11:17)
[2022-08-13] MEDS: METHIMAZOLE 5 MG TABLET PO SCH (11:19)
[2022-08-13] MEDS: LIDOCAINE 5% TOPICAL PATCH TP SCH (11:19)
[2022-08-13] MEDS: ATORVASTATIN CA 80 MG TABLET (FP) PO SCH (22:37)
[2022-08-13] MEDS: SENNOSIDES 8.6MG TABLET (FP) PO SCH (22:37)
[2022-08-13] MEDS: CHOLECALCIFEROL (VIT D3) 1,000 UNIT (25 MCG) TABLET PO SCH (22:38)
[2022-08-13] MEDS: ASPIRIN COATED 81 MG TABLET.EC PO SCH (22:38)
[2022-08-13] MEDS: AMITRIPTYLINE HCL 25 MG TABLET PO SCH (22:38)
[2022-08-13] MEDS: FENOFIBRIC ACID 135 MG CAP PO SCH (22:38)
[2022-08-13] MEDS: LIDOCAINE PATCH REMOVAL MC SCH (22:39)
[2022-08-14] MEDS: BUMETANIDE INJECTION 1 MG/4 ML VIAL IVPUSH SCH ×2 (06:10→16:56)
[2022-08-14] MEDS: HEPARIN NA (PORCINE) 5,000 UNITS/ML 1ML VIAL SQ SCH ×3 (06:13→22:23)
[2022-08-14] MEDS: INSULIN SLIDING SCALE (NOVOLOG) 1 VIAL SQ SCH ×4 (06:17→22:23)
[2022-08-14 07:49] LABS: POTASSIUM 5.3 mmol/L (3.5-5.1)
[2022-08-14 07:54] LABS: CALCIUM 9.5 mg/dL (8.5-10.1)
[2022-08-14 08:01] LABS: CREATININE 2.1 mg/dL (0.55-1.3)
[2022-08-14] MEDS: CYANOCOBALAMIN 1,000 MCG TABLET (FP) PO SCH (10:26)
[2022-08-14] MEDS: LACTOBACILLUS ACIDOPHILUS 1 TABLET PO SCH (10:26)
[2022-08-14] MEDS: PANTOPRAZOLE SOD 40 MG SUSPENSION PACKET PO SCH (10:26)
[2022-08-14] MEDS: SODIUM ZIRCONIUM CYCLOSILICATE (LOKELMA) 5 GM PACKET PO SCH (10:26)
[2022-08-14] MEDS: POLYETHYLENE GLYCOL (HEALTHYLAX) 3350 17 GM PACKET PO SCH ×2 (10:26→22:23)
[2022-08-14] MEDS: RANOLAZINE E.R. 500 MG TABLET (FP) PO SCH ×2 (10:26→22:23)
[2022-08-14] MEDS: METHIMAZOLE 5 MG TABLET PO SCH (10:27)
[2022-08-14] MEDS: LISINOPRIL 5 MG TABLET PO SCH (10:27)
[2022-08-14] MEDS: MULTIVITAMINS (DAILY MVI) TABLET (FP) PO SCH (10:27)
[2022-08-14] MEDS: CARVEDILOL 12.5 MG TABLET (FP) PO SCH ×2 (10:27→22:22)
[2022-08-14] MEDS: LIDOCAINE 5% TOPICAL PATCH TP SCH (10:46)
[2022-08-14] MEDS ORDERED: BACLOFEN 10 MG TABLET (FP) PO PRN (16:40)
[2022-08-14] MEDS: ASPIRIN COATED 81 MG TABLET.EC PO SCH (22:22)
[2022-08-14] MEDS: ATORVASTATIN CA 80 MG TABLET (FP) PO SCH (22:22)
[2022-08-14] MEDS: AMITRIPTYLINE HCL 25 MG TABLET PO SCH (22:22)
[2022-08-14] MEDS: CHOLECALCIFEROL (VIT D3) 1,000 UNIT (25 MCG) TABLET PO SCH (22:23)
[2022-08-14] MEDS: SENNOSIDES 8.6MG TABLET (FP) PO SCH (22:23)
[2022-08-14] MEDS: FENOFIBRIC ACID 135 MG CAP PO SCH (22:35)
[2022-08-14] MEDS: guaiFENesin 200 MG/10 ML 10 ML UNIT-DOSE CUPS PO PRN (22:36)
[2022-08-14] MEDS: LIDOCAINE PATCH REMOVAL MC SCH ×2 (23:11)
[2022-08-15] MEDS: ACETAMINOPHEN 325 MG TABLET (FP) PO PRN (02:40)
[2022-08-15] MEDS: BUMETANIDE INJECTION 1 MG/4 ML VIAL IVPUSH SCH (06:24)
[2022-08-15] MEDS: HEPARIN NA (PORCINE) 5,000 UNITS/ML 1ML VIAL SQ SCH (06:25)
[2022-08-15] MEDS: INSULIN SLIDING SCALE (NOVOLOG) 1 VIAL SQ SCH ×4 (06:43→22:20)
[2022-08-15 06:49] LABS: CHLORIDE 90 mmol/L (98-107); POTASSIUM 4.8 mmol/L (3.5-5.1); SODIUM 133 mmol/L (136-145)
[2022-08-15 06:51] LABS: ANION GAP 12 MMOL/L (8-16); CO2 32 mmol/L (21-32); GLUCOSE,RANDOM 177 mg/dL (74-106)
[2022-08-15 06:55] LABS: CREATININE 2.3 mg/dL (0.55-1.3)
[2022-08-15 07:01] LABS: BLOOD UREA NITROGEN 106.6 mg/dL (7-18)
[2022-08-15] MEDS: LIDOCAINE 5% TOPICAL PATCH TP SCH ×2 (11:37→11:39)
[2022-08-15] MEDS: POLYETHYLENE GLYCOL (HEALTHYLAX) 3350 17 GM PACKET PO SCH ×2 (11:38→22:32)
[2022-08-15] MEDS: SODIUM ZIRCONIUM CYCLOSILICATE (LOKELMA) 5 GM PACKET PO SCH (11:38)
[2022-08-15] MEDS: PANTOPRAZOLE SOD 40 MG SUSPENSION PACKET PO SCH (11:38)
[2022-08-15] MEDS: MULTIVITAMINS (DAILY MVI) TABLET (FP) PO SCH (11:39)
[2022-08-15] MEDS: CARVEDILOL 12.5 MG TABLET (FP) PO SCH ×2 (11:39→22:20)
[2022-08-15] MEDS: CYANOCOBALAMIN 1,000 MCG TABLET (FP) PO SCH (11:39)
[2022-08-15] MEDS: RANOLAZINE E.R. 500 MG TABLET (FP) PO SCH ×2 (11:39→22:31)
[2022-08-15] MEDS: LISINOPRIL 5 MG TABLET PO SCH (11:39)
[2022-08-15] MEDS: LACTOBACILLUS ACIDOPHILUS 1 TABLET PO SCH (11:39)
[2022-08-15] MEDS: METHIMAZOLE 5 MG TABLET PO SCH (11:40)
[2022-08-15] MEDS: BUMETANIDE 1 MG TABLET PO SCH (18:37)
[2022-08-15] MEDS: FENOFIBRIC ACID 135 MG CAP PO SCH (22:31)
[2022-08-15] MEDS: ATORVASTATIN CA 80 MG TABLET (FP) PO SCH (22:31)
[2022-08-15] MEDS: ASPIRIN COATED 81 MG TABLET.EC PO SCH (22:31)
[2022-08-15] MEDS: CHOLECALCIFEROL (VIT D3) 1,000 UNIT (25 MCG) TABLET PO SCH (22:31)
[2022-08-15] MEDS: AMITRIPTYLINE HCL 25 MG TABLET PO SCH (22:31)
[2022-08-15] MEDS: SENNOSIDES 8.6MG TABLET (FP) PO SCH (22:32)
[2022-08-15] MEDS: LIDOCAINE PATCH REMOVAL MC SCH ×2 (22:32)
[2022-08-16] MEDS: BUMETANIDE 1 MG TABLET PO SCH (06:36)
[2022-08-16] MEDS: INSULIN SLIDING SCALE (NOVOLOG) 1 VIAL SQ SCH ×4 (06:37→21:16)
[2022-08-16 07:37] LABS: CALCIUM 8.5 mg/dL (8.5-10.1); POTASSIUM 4.5 mmol/L (3.5-5.1)
[2022-08-16 07:39] LABS: BLOOD UREA NITROGEN 101.4 mg/dL (7-18)
[2022-08-16 07:42] LABS: CREATININE 2.4 mg/dL (0.55-1.3)
[2022-08-16] MEDS: SODIUM ZIRCONIUM CYCLOSILICATE (LOKELMA) 5 GM PACKET PO SCH (10:58)
[2022-08-16] MEDS: MULTIVITAMINS (DAILY MVI) TABLET (FP) PO SCH (10:59)
[2022-08-16] MEDS: CYANOCOBALAMIN 1,000 MCG TABLET (FP) PO SCH (10:59)
[2022-08-16] MEDS: CARVEDILOL 12.5 MG TABLET (FP) PO SCH ×2 (10:59→21:13)
[2022-08-16] MEDS: RANOLAZINE E.R. 500 MG TABLET (FP) PO SCH ×2 (10:59→21:13)
[2022-08-16] MEDS: PANTOPRAZOLE SOD 40 MG SUSPENSION PACKET PO SCH (10:59)
[2022-08-16] MEDS: LISINOPRIL 5 MG TABLET PO SCH (10:59)
[2022-08-16] MEDS: LACTOBACILLUS ACIDOPHILUS 1 TABLET PO SCH (10:59)
[2022-08-16] MEDS: POLYETHYLENE GLYCOL (HEALTHYLAX) 3350 17 GM PACKET PO SCH ×2 (10:59→21:15)
[2022-08-16] MEDS: LIDOCAINE 5% TOPICAL PATCH TP SCH ×2 (11:00)
[2022-08-16] MEDS: METHIMAZOLE 5 MG TABLET PO SCH (11:01)
[2022-08-16] MEDS: ASPIRIN COATED 81 MG TABLET.EC PO SCH (21:13)
[2022-08-16] MEDS: ATORVASTATIN CA 80 MG TABLET (FP) PO SCH (21:13)
[2022-08-16] MEDS: SENNOSIDES 8.6MG TABLET (FP) PO SCH (21:13)
[2022-08-16] MEDS: CHOLECALCIFEROL (VIT D3) 1,000 UNIT (25 MCG) TABLET PO SCH (21:13)
[2022-08-16] MEDS: FENOFIBRIC ACID 135 MG CAP PO SCH (21:14)
[2022-08-16] MEDS: AMITRIPTYLINE HCL 25 MG TABLET PO SCH (21:14)
[2022-08-16] MEDS: LIDOCAINE PATCH REMOVAL MC SCH ×2 (21:15→21:16)
[2022-08-17] MEDS: ACETAMINOPHEN 325 MG TABLET (FP) PO PRN ×2 (03:18→21:10)
[2022-08-17] MEDS: INSULIN SLIDING SCALE (NOVOLOG) 1 VIAL SQ SCH ×4 (06:00→21:11)
[2022-08-17 07:40] LABS: CHLORIDE 91 mmol/L (98-107); SODIUM 135 mmol/L (136-145)
[2022-08-17 07:41] LABS: CALCIUM 8.2 mg/dL (8.5-10.1)
[2022-08-17 07:42] LABS: ANION GAP 12 MMOL/L (8-16); BLOOD UREA NITROGEN 98.2 mg/dL (7-18); CO2 32 mmol/L (21-32); GLUCOSE,RANDOM 185 mg/dL (74-106)
[2022-08-17 07:44] LABS: HEMATOCRIT 26.7 % (32.4-45.2); HEMOGLOBIN 8.7 GM/dL (10.7-15.3); MCH 28.2 pg (25.7-33.7); MCHC 32.7 g/dl (32.0-36.0); MEAN CELL VOLUME 86.2 fl (80-96); MEAN PLT VOLUME 8.7 fl (7.5-11.1); PLATELET COUNT 322 10^3/uL (134-434); RDW 15.8 % (11.6-15.6); WHITE BLOOD COUNT 9.1 K/mm3 (4.0-10.0)
[2022-08-17 07:45] LABS: CREATININE 2.4 mg/dL (0.55-1.3)
[2022-08-17 09:24] LABS: ANISOCYTOSIS 0; MACROCYTOSIS 0
[2022-08-17] MEDS: POLYETHYLENE GLYCOL (HEALTHYLAX) 3350 17 GM PACKET PO SCH (09:28)
[2022-08-17] MEDS: CYANOCOBALAMIN 1,000 MCG TABLET (FP) PO SCH (09:29)
[2022-08-17] MEDS: LIDOCAINE 5% TOPICAL PATCH TP SCH ×2 (09:29)
[2022-08-17] MEDS: MULTIVITAMINS (DAILY MVI) TABLET (FP) PO SCH (09:29)
[2022-08-17] MEDS: PANTOPRAZOLE SOD 40 MG SUSPENSION PACKET PO SCH (09:29)
[2022-08-17] MEDS: LISINOPRIL 5 MG TABLET PO SCH ×2 (09:30→09:46)
[2022-08-17] MEDS: LACTOBACILLUS ACIDOPHILUS 1 TABLET PO SCH (09:32)
[2022-08-17] MEDS: RANOLAZINE E.R. 500 MG TABLET (FP) PO SCH ×2 (09:32→21:12)
[2022-08-17] MEDS: BUMETANIDE 1 MG TABLET PO SCH (09:33)
[2022-08-17] MEDS: METHIMAZOLE 5 MG TABLET PO SCH (09:35)
[2022-08-17] MEDS: CARVEDILOL PO SCH ×2 (09:46→21:09)
[2022-08-17] MEDS ORDERED: CARVEDILOL 12.5 MG TABLET (FP) PO SCH (10:00)
[2022-08-17] MEDS: ALLOPURINOL 100 MG TABLET (FP) PO SCH (12:12)
[2022-08-17 12:51] LABS: URIC ACID 16.1 mg/dL (2.6-7.2)
[2022-08-17] MEDS ORDERED: INSULIN SLIDING SCALE (NOVOLOG) 1 VIAL SQ ONE (16:42)
[2022-08-17] MEDS: ASPIRIN COATED 81 MG TABLET.EC PO SCH (21:08)
[2022-08-17] MEDS: CHOLECALCIFEROL (VIT D3) 1,000 UNIT (25 MCG) TABLET PO SCH (21:09)
[2022-08-17] MEDS: ATORVASTATIN CA 80 MG TABLET (FP) PO SCH (21:09)
[2022-08-17] MEDS: AMITRIPTYLINE HCL 25 MG TABLET PO SCH (21:09)
[2022-08-17] MEDS: FENOFIBRIC ACID 135 MG CAP PO SCH (21:10)
[2022-08-17] MEDS: LIDOCAINE PATCH REMOVAL MC SCH ×2 (21:11)
[2022-08-17] MEDS ORDERED: GABAPENTIN 100 MG CAPSULE PO SCH (22:00)
[2022-08-18] MEDS: INSULIN SLIDING SCALE (NOVOLOG) 1 VIAL SQ SCH ×4 (06:27→22:16)
[2022-08-18 07:39] LABS: POTASSIUM 4.1 mmol/L (3.5-5.1)
[2022-08-18 07:48] LABS: BLOOD UREA NITROGEN 93.5 mg/dL (7-18); CALCIUM 8.5 mg/dL (8.5-10.1)
[2022-08-18 07:52] LABS: CREATININE 2.8 mg/dL (0.55-1.3)
[2022-08-18] MEDS: CYANOCOBALAMIN 1,000 MCG TABLET (FP) PO SCH (09:41)
[2022-08-18] MEDS: CARVEDILOL PO SCH ×2 (09:42→22:15)
[2022-08-18] MEDS: PANTOPRAZOLE SOD 40 MG SUSPENSION PACKET PO SCH (09:42)
[2022-08-18] MEDS: MULTIVITAMINS (DAILY MVI) TABLET (FP) PO SCH (09:42)
[2022-08-18] MEDS: RANOLAZINE E.R. 500 MG TABLET (FP) PO SCH ×2 (09:42→22:14)
[2022-08-18] MEDS: LACTOBACILLUS ACIDOPHILUS 1 TABLET PO SCH (09:42)
[2022-08-18] MEDS: LIDOCAINE 5% TOPICAL PATCH TP SCH ×2 (09:43)
[2022-08-18] MEDS: METHIMAZOLE 5 MG TABLET PO SCH (09:44)
[2022-08-18 10:01] LABS: MAGNESIUM 1.7 mg/dL (1.8-2.4)
[2022-08-18 10:05] LABS: PHOSPHOROUS 4.5 mg/dL (2.5-4.9)
[2022-08-18] MEDS ORDERED: MAGNESIUM 1GM/D5W 100ML - 100 ML IVPB IVPB ONE (11:57)
[2022-08-18] MEDS ORDERED: INSULIN SLIDING SCALE (NOVOLOG) 1 VIAL SQ ONE ×2 (12:19→16:45)
[2022-08-18] MEDS: AMITRIPTYLINE HCL 25 MG TABLET PO SCH (22:13)
[2022-08-18] MEDS: ASPIRIN COATED 81 MG TABLET.EC PO SCH (22:14)
[2022-08-18] MEDS: FENOFIBRIC ACID 135 MG CAP PO SCH (22:15)
[2022-08-18] MEDS: CHOLECALCIFEROL (VIT D3) 1,000 UNIT (25 MCG) TABLET PO SCH (22:16)
[2022-08-18] MEDS: ATORVASTATIN CA 80 MG TABLET (FP) PO SCH (22:16)
[2022-08-18] MEDS: LIDOCAINE PATCH REMOVAL MC SCH ×2 (22:18→22:48)
[2022-08-19] MEDS: INSULIN SLIDING SCALE (NOVOLOG) 1 VIAL SQ SCH ×4 (06:13→21:53)
[2022-08-19 08:12] LABS: POTASSIUM 4.4 mmol/L (3.5-5.1)
[2022-08-19 08:21] LABS: BLOOD UREA NITROGEN 89.1 mg/dL (7-18); CALCIUM 8.6 mg/dL (8.5-10.1); MAGNESIUM 1.8 mg/dL (1.8-2.4)
[2022-08-19 08:23] LABS: HEMATOCRIT 28.1 % (32.4-45.2); HEMOGLOBIN 9.1 GM/dL (10.7-15.3); MCH 28.3 pg (25.7-33.7); MCHC 32.4 g/dl (32.0-36.0); MEAN CELL VOLUME 87.5 fl (80-96); MEAN PLT VOLUME 8.9 fl (7.5-11.1); PLATELET COUNT 304 10^3/uL (134-434); RBC 3.21 M/mm3 (3.60-5.2); RDW 15.6 % (11.6-15.6); WHITE BLOOD COUNT 8.3 K/mm3 (4.0-10.0)
[2022-08-19 08:24] LABS: CREATININE 2.8 mg/dL (0.55-1.3)
[2022-08-19 09:35] LABS: ANISOCYTOSIS 1+; MACROCYTOSIS 0
[2022-08-19] MEDS: LIDOCAINE 5% TOPICAL PATCH TP SCH ×2 (09:53)
[2022-08-19] MEDS: MULTIVITAMINS (DAILY MVI) TABLET (FP) PO SCH (09:54)
[2022-08-19] MEDS: ALLOPURINOL 100 MG TABLET (FP) PO SCH (09:54)
[2022-08-19] MEDS: CYANOCOBALAMIN 1,000 MCG TABLET (FP) PO SCH (09:54)
[2022-08-19] MEDS: RANOLAZINE E.R. 500 MG TABLET (FP) PO SCH ×2 (09:55→21:55)
[2022-08-19] MEDS: LACTOBACILLUS ACIDOPHILUS 1 TABLET PO SCH (09:55)
[2022-08-19] MEDS: CARVEDILOL PO SCH ×2 (09:56→21:54)
[2022-08-19] MEDS: BUMETANIDE 1 MG TABLET PO SCH (09:57)
[2022-08-19] MEDS: METHIMAZOLE 5 MG TABLET PO SCH (09:58)
[2022-08-19] MEDS: PANTOPRAZOLE SOD 40 MG SUSPENSION PACKET PO SCH (09:58)
[2022-08-19] MEDS ORDERED: INSULIN SLIDING SCALE (NOVOLOG) 1 VIAL SQ ONE (11:47)
[2022-08-19] MEDS: AMITRIPTYLINE HCL 25 MG TABLET PO SCH (21:54)
[2022-08-19] MEDS: CHOLECALCIFEROL (VIT D3) 1,000 UNIT (25 MCG) TABLET PO SCH (21:55)
[2022-08-19] MEDS: ASPIRIN COATED 81 MG TABLET.EC PO SCH (21:55)
[2022-08-19] MEDS: ATORVASTATIN CA 80 MG TABLET (FP) PO SCH (21:55)
[2022-08-19] MEDS: FENOFIBRIC ACID 135 MG CAP PO SCH (21:56)
[2022-08-19] MEDS: LIDOCAINE PATCH REMOVAL MC SCH ×2 (21:56)
[2022-08-20] MEDS: ACETAMINOPHEN 325 MG TABLET (FP) PO PRN (01:56)
[2022-08-20] MEDS: INSULIN SLIDING SCALE (NOVOLOG) 1 VIAL SQ SCH ×4 (06:12→21:32)
[2022-08-20 07:31] LABS: HEMATOCRIT 28.9 % (32.4-45.2); HEMOGLOBIN 9.5 GM/dL (10.7-15.3); MCH 28.6 pg (25.7-33.7); MCHC 32.8 g/dl (32.0-36.0); MEAN CELL VOLUME 87.1 fl (80-96); MEAN PLT VOLUME 8.7 fl (7.5-11.1); PLATELET COUNT 333 10^3/uL (134-434); RBC 3.31 M/mm3 (3.60-5.2); RDW 15.9 % (11.6-15.6); WHITE BLOOD COUNT 8.7 K/mm3 (4.0-10.0)
[2022-08-20 07:59] LABS: POTASSIUM 3.9 mmol/L (3.5-5.1)
[2022-08-20 08:02] LABS: BLOOD UREA NITROGEN 78.9 mg/dL (7-18)
[2022-08-20 08:05] LABS: CALCIUM 9.1 mg/dL (8.5-10.1); CREATININE 2.5 mg/dL (0.55-1.3); MAGNESIUM 1.7 mg/dL (1.8-2.4)
[2022-08-20] MEDS: RANOLAZINE E.R. 500 MG TABLET (FP) PO SCH ×2 (09:22→21:31)
[2022-08-20] MEDS: MULTIVITAMINS (DAILY MVI) TABLET (FP) PO SCH (09:22)
[2022-08-20] MEDS: LACTOBACILLUS ACIDOPHILUS 1 TABLET PO SCH (09:22)
[2022-08-20] MEDS: CYANOCOBALAMIN 1,000 MCG TABLET (FP) PO SCH (09:22)
[2022-08-20] MEDS: PANTOPRAZOLE SOD 40 MG SUSPENSION PACKET PO SCH (09:23)
[2022-08-20] MEDS: METHIMAZOLE 5 MG TABLET PO SCH (09:24)
[2022-08-20] MEDS: LIDOCAINE 5% TOPICAL PATCH TP SCH ×2 (09:24)
[2022-08-20] MEDS ORDERED: MAGNESIUM SULF 50% (8.12 MEQ/2 ML-1 GM VIAL) IVPB ONE ×2 (10:34)
[2022-08-20] MEDS: LISINOPRIL 5 MG TABLET PO SCH (11:16)
[2022-08-20 17:06] LABS: ATYPICAL pANCA <1:20 titer (Neg:<1:20); C-ANCA <1:20 titer (Neg:<1:20)
[2022-08-20 21:08] LABS: ANTIGLOMERULAR BASEMENT MEN.AB <0.2 units (0.0-0.9)
[2022-08-20] MEDS: ATORVASTATIN CA 80 MG TABLET (FP) PO SCH (21:31)
[2022-08-20] MEDS: CHOLECALCIFEROL (VIT D3) 1,000 UNIT (25 MCG) TABLET PO SCH (21:31)
[2022-08-20] MEDS: ASPIRIN COATED 81 MG TABLET.EC PO SCH (21:31)
[2022-08-20] MEDS: FENOFIBRIC ACID 135 MG CAP PO SCH (21:32)
[2022-08-20] MEDS: LIDOCAINE PATCH REMOVAL MC SCH ×2 (21:34)
[2022-08-20] MEDS: AMITRIPTYLINE HCL 25 MG TABLET PO SCH ×2 (22:25→22:31)
[2022-08-21] MEDS: guaiFENesin 200 MG/10 ML 10 ML UNIT-DOSE CUPS PO PRN ×2 (00:44→06:14)
[2022-08-21] MEDS: INSULIN SLIDING SCALE (NOVOLOG) 1 VIAL SQ SCH ×4 (06:12→21:36)
[2022-08-21 08:05] LABS: BASO % 1.3 % (0-2.0); EOS % 6.5 % (0-4.5); HEMATOCRIT 28.6 % (32.4-45.2); HEMOGLOBIN 9.3 GM/dL (10.7-15.3); LYMPH % 8.3 % (8-40); MCHC 32.5 g/dl (32.0-36.0); MEAN CELL VOLUME 89.1 fl (80-96); MEAN PLT VOLUME 8.8 fl (7.5-11.1); MONO % 10.3 % (3.8-10.2); NEUT % 73.6 % (42.8-82.8); PLATELET COUNT 331 10^3/uL (134-434); RBC 3.21 M/mm3 (3.60-5.2); WHITE BLOOD COUNT 11.8 K/mm3 (4.0-10.0)
[2022-08-21 08:24] LABS: POTASSIUM 4.3 mmol/L (3.5-5.1)
[2022-08-21 08:30] LABS: BLOOD UREA NITROGEN 71.9 mg/dL (7-18)
[2022-08-21 08:32] LABS: CREATININE 2.4 mg/dL (0.55-1.3)
[2022-08-21 08:34] LABS: BILIRUBIN,TOTAL 0.9 mg/dL (0.2-1); TOT PROT 5.3 g/dl (6.4-8.2)
[2022-08-21 08:36] LABS: ALBUMIN 2.2 g/dl (3.4-5.0)
[2022-08-21] MEDS: BUMETANIDE 1 MG TABLET PO SCH (09:30)
[2022-08-21] MEDS: PANTOPRAZOLE SOD 40 MG SUSPENSION PACKET PO SCH (09:38)
[2022-08-21] MEDS: RANOLAZINE E.R. 500 MG TABLET (FP) PO SCH ×2 (09:39→21:34)
[2022-08-21] MEDS: LIDOCAINE 5% TOPICAL PATCH TP SCH ×2 (09:39→09:40)
[2022-08-21] MEDS: LACTOBACILLUS ACIDOPHILUS 1 TABLET PO SCH (09:40)
[2022-08-21] MEDS: LISINOPRIL 5 MG TABLET PO SCH (09:40)
[2022-08-21] MEDS: MULTIVITAMINS (DAILY MVI) TABLET (FP) PO SCH (09:40)
[2022-08-21] MEDS: CYANOCOBALAMIN 1,000 MCG TABLET (FP) PO SCH (09:40)
[2022-08-21] MEDS: ALLOPURINOL 100 MG TABLET (FP) PO SCH (09:41)
[2022-08-21] MEDS: METHIMAZOLE 5 MG TABLET PO SCH (09:47)
[2022-08-21 16:24] LABS: EPI CELLS >36 /uL (0-25.1); HYALINE CASTS 195 /uL (0-3.1); URINE APPEARANCE TURBID; URINE BACTERIA >9,000 /uL (0-1359); URINE BILIRUBIN NEGATIVE (NEGATIVE); URINE COLOR YELLOW; URINE GLUCOSE (UA) NEGATIVE (NEGATIVE); URINE KETONE NEGATIVE (NEGATIVE); URINE LEUK ESTERASE 3+ (NEGATIVE); URINE NITRITE NEGATIVE (NEGATIVE); URINE PROTEIN 2+ (NEGATIVE); URINE WBC 44785 /uL (0-25.8)
[2022-08-21] MEDS ORDERED: FOSFOMYCIN TROMETHAMINE 3 GM/PKT FOR ORAL SOLUTION PO ONE ×2 (17:15→19:00)
[2022-08-21 19:01] LABS: EPI CELLS >36 /uL (0-25.1); HYALINE CASTS 156 /uL (0-3.1); URINE APPEARANCE TURBID; URINE BACTERIA >9,000 /uL (0-1359); URINE BILIRUBIN NEGATIVE (NEGATIVE); URINE COLOR YELLOW; URINE GLUCOSE (UA) NEGATIVE (NEGATIVE); URINE KETONE NEGATIVE (NEGATIVE); URINE LEUK ESTERASE 3+ (NEGATIVE); URINE NITRITE NEGATIVE (NEGATIVE); URINE PROTEIN 2+ (NEGATIVE); URINE WBC 45163 /uL (0-25.8)
[2022-08-21] MEDS: ASPIRIN COATED 81 MG TABLET.EC PO SCH (21:34)
[2022-08-21] MEDS: ATORVASTATIN CA 80 MG TABLET (FP) PO SCH (21:34)
[2022-08-21] MEDS: FENOFIBRIC ACID 135 MG CAP PO SCH (21:35)
[2022-08-21] MEDS: CHOLECALCIFEROL (VIT D3) 1,000 UNIT (25 MCG) TABLET PO SCH (21:35)
[2022-08-21] MEDS: LIDOCAINE PATCH REMOVAL MC SCH ×2 (21:36)
[2022-08-21] MEDS: AMITRIPTYLINE HCL 25 MG TABLET PO SCH (21:36)
[2022-08-21 21:44] LABS: URINE RBC 741.1 /uL (0-23.9); YEAST NEGATIVE (NEGATIVE)
[2022-08-21 22:16] LABS: URINE RBC 484.3 /uL (0-23.9)
[2022-08-21 22:17] LABS: YEAST NEGATIVE (NEGATIVE)
[2022-08-22] MEDS: INSULIN SLIDING SCALE (NOVOLOG) 1 VIAL SQ SCH ×4 (06:04→22:48)
[2022-08-22 07:17] LABS: BASO % 1.8 % (0-2.0); EOS % 10.2 % (0-4.5); HEMOGLOBIN 9.2 GM/dL (10.7-15.3); LYMPH % 13.3 % (8-40); MCH 29.1 pg (25.7-33.7); MCHC 32.7 g/dl (32.0-36.0); MEAN PLT VOLUME 8.6 fl (7.5-11.1); MONO % 11.2 % (3.8-10.2); NEUT % 63.5 % (42.8-82.8); PLATELET COUNT 328 10^3/uL (134-434); RBC 3.15 M/mm3 (3.60-5.2); RDW 16.2 % (11.6-15.6); WHITE BLOOD COUNT 8.4 K/mm3 (4.0-10.0)
[2022-08-22 07:31] LABS: POTASSIUM 3.9 mmol/L (3.5-5.1)
[2022-08-22 07:33] LABS: CALCIUM 8.7 mg/dL (8.5-10.1)
[2022-08-22 07:34] LABS: ALBUMIN 2.2 g/dl (3.4-5.0); BLOOD UREA NITROGEN 70.4 mg/dL (7-18)
[2022-08-22 07:37] LABS: CREATININE 2.5 mg/dL (0.55-1.3)
[2022-08-22 07:39] LABS: BILIRUBIN,TOTAL 0.8 mg/dL (0.2-1)
[2022-08-22] MEDS: BUMETANIDE 1 MG TABLET PO SCH (10:05)
[2022-08-22] MEDS: METHIMAZOLE 5 MG TABLET PO SCH (10:06)
[2022-08-22] MEDS: LISINOPRIL 5 MG TABLET PO SCH (10:07)
[2022-08-22] MEDS: RANOLAZINE E.R. 500 MG TABLET (FP) PO SCH ×2 (10:07→22:22)
[2022-08-22] MEDS: MULTIVITAMINS (DAILY MVI) TABLET (FP) PO SCH (10:07)
[2022-08-22] MEDS: LIDOCAINE 5% TOPICAL PATCH TP SCH ×2 (10:08)
[2022-08-22] MEDS: PANTOPRAZOLE SOD 40 MG SUSPENSION PACKET PO SCH (10:08)
[2022-08-22] MEDS: CYANOCOBALAMIN 1,000 MCG TABLET (FP) PO SCH (10:08)
[2022-08-22] MEDS: LACTOBACILLUS ACIDOPHILUS 1 TABLET PO SCH (10:08)
[2022-08-22] MEDS: ATORVASTATIN CA 80 MG TABLET (FP) PO SCH (22:22)
[2022-08-22] MEDS: CHOLECALCIFEROL (VIT D3) 1,000 UNIT (25 MCG) TABLET PO SCH (22:22)
[2022-08-22] MEDS: ASPIRIN COATED 81 MG TABLET.EC PO SCH (22:22)
[2022-08-22] MEDS: AMITRIPTYLINE HCL 25 MG TABLET PO SCH (22:23)
[2022-08-22] MEDS: FENOFIBRIC ACID 135 MG CAP PO SCH (22:23)
[2022-08-22] MEDS: LIDOCAINE PATCH REMOVAL MC SCH ×2 (22:25→22:28)
[2022-08-23 05:54] VITALS: PULSE 104
[2022-08-23] MEDS: INSULIN SLIDING SCALE (NOVOLOG) 1 VIAL SQ SCH ×2 (06:10→12:08)
[2022-08-23 09:44] VITALS: BP 121/61; RESP 19; TEMP 97.7
[2022-08-23] MEDS: PANTOPRAZOLE SOD 40 MG SUSPENSION PACKET PO SCH (10:09)
[2022-08-23] MEDS: ALLOPURINOL 100 MG TABLET (FP) PO SCH (10:09)
[2022-08-23] MEDS: CYANOCOBALAMIN 1,000 MCG TABLET (FP) PO SCH (10:10)
[2022-08-23] MEDS: BUMETANIDE 1 MG TABLET PO SCH (10:10)
[2022-08-23] MEDS: LACTOBACILLUS ACIDOPHILUS 1 TABLET PO SCH (10:11)
[2022-08-23] MEDS: MULTIVITAMINS (DAILY MVI) TABLET (FP) PO SCH (10:11)
[2022-08-23] MEDS: LIDOCAINE 5% TOPICAL PATCH TP SCH ×2 (10:11)
[2022-08-23] MEDS: METHIMAZOLE 5 MG TABLET PO SCH (10:12)
[2022-08-23] MEDS: RANOLAZINE E.R. 500 MG TABLET (FP) PO SCH (10:12)
[2022-08-23] MEDS: LISINOPRIL 5 MG TABLET PO SCH (10:12)
== END 2022-08-23 15:58 | disposition home or self-care (01) | DRG 291 ==
LOC: JER 13:23 → JERBED 14:19 → J4S 18:49
PROVIDERS: ADMIT Internal Medicine; ATTEND Internal Medicine
PROC: 0W9930Z Drainage of Right Pleural Cavity with Drainage Device, Percutaneous Approach (ICD-10-PCS; principal; 2022-08-08)
DX: I13.0 Hypertensive heart and chronic kidney disease with heart failure and stage 1 through stage 4 chronic kidney disease, or unspecified chronic kidney disease (principal); I50.33 Acute on chronic diastolic (congestive) heart failure; N17.9 Acute kidney failure, unspecified; Z68.41 Body mass index [BMI] 40.0-44.9, adult; J90 Pleural effusion, not elsewhere classified; N39.0 Urinary tract infection, site not specified; Z16.12 Extended spectrum beta lactamase (ESBL) resistance; J98.11 Atelectasis; N18.30 Chronic kidney disease, stage 3 unspecified; E66.9 Obesity, unspecified; E11.65 Type 2 diabetes mellitus with hyperglycemia; M10.9 Gout, unspecified; I95.1 Orthostatic hypotension; I25.10 Atherosclerotic heart disease of native coronary artery without angina pectoris; Z95.5 Presence of coronary angioplasty implant and graft; E78.5 Hyperlipidemia, unspecified; E11.22 Type 2 diabetes mellitus with diabetic chronic kidney disease; D63.1 Anemia in chronic kidney disease; E05.90 Thyrotoxicosis, unspecified without thyrotoxic crisis or storm; E83.42 Hypomagnesemia
CPT/HCPCS: 0241U-QW; 36415; 71045-TC-FY; 71250-TC; 76775-TC; 80048; 80053; 80061; 81003; 82040; 82042; 82150; 82465; 82803; 82945; 82962; 83036; 83516; 83520; 83615; 83735; 83880; 83986; 84100; 84155; 84157; 84165; 84439; 84443; 84484; 84550; 85025; 85027; 85610; 85730; 86038; 86225; 86256; 87070; 87075; 87086; 87102; 87116; 87186; 87205; 87206; 87210; 88108; 88305-TC; 88341-TC; 93005; 93010; 93306-TC; 93970-TC; 94761; 97116-GP; 97162-GP; 99285-25; J0475; J1644

== ENCOUNTER 2022-09-26 15:05 | Inpatient (IN) | payer OTHER ==
[2022-09-26 16:45] LABS: BASO % 0.7 % (0-2.0); EOS % 8.5 % (0-4.5); HEMATOCRIT 29.4 % (32.4-45.2); HEMOGLOBIN 9.9 GM/dL (10.7-15.3); LYMPH % 11.5 % (8-40); MCH 29.8 pg (25.7-33.7); MCHC 33.7 g/dl (32.0-36.0); MEAN CELL VOLUME 88.5 fl (80-96); MONO % 9.4 % (3.8-10.2); NEUT % 69.9 % (42.8-82.8); PLATELET COUNT 819 10^3/uL (134-434); RBC 3.32 M/mm3 (3.60-5.2); RDW 14.8 % (11.6-15.6); WHITE BLOOD COUNT 10.7 K/mm3 (4.0-10.0)
[2022-09-26 16:52] LABS: INR 1.27 (0.83-1.09); PROTHROMBIN TIME (PATIENT) 14.7 SEC (9.7-13.0)
[2022-09-26 17:01] LABS: POTASSIUM 5.2 mmol/L (3.5-5.1)
[2022-09-26 17:03] LABS: ALBUMIN 2.6 g/dl (3.4-5.0); BLOOD UREA NITROGEN 61.6 mg/dL (7-18); CALCIUM 8.8 mg/dL (8.5-10.1)
[2022-09-26 17:06] LABS: CREATININE 2.8 mg/dL (0.55-1.3)
[2022-09-26 17:08] LABS: BILIRUBIN,TOTAL 0.4 mg/dL (0.2-1); TOT PROT 6.6 g/dl (6.4-8.2)
[2022-09-26] MEDS ORDERED: PATIENT'S OWN MEDICATION (NON-FORMULARY) (Simvastatin 40 MG Tablet) PO SCH (22:00)
[2022-09-26] MEDS ORDERED: ATORVASTATIN CA 20 MG TABLET (FP) PO SCH (22:00)
[2022-09-26] MEDS ORDERED: PATIENT'S OWN MEDICATION (NON-FORMULARY) (Cyanocobalamin (Vitamin B-12) [Vitamin B12] 2,50 PO SCH (22:00)
[2022-09-26] MEDS ORDERED: ASPIRIN COATED 81 MG TABLET.EC PO SCH (22:00)
[2022-09-26] MEDS ORDERED: AMITRIPTYLINE HCL 50 MG TABLET PO SCH (22:00)
[2022-09-26] MEDS: AMITRIPTYLINE HCL 25 MG TABLET PO SCH (23:40)
[2022-09-26] MEDS: ROSUVASTATIN CA 10 MG TABLET PO SCH (23:40)
[2022-09-26] MEDS: CYANOCOBALAMIN 1,000 MCG TABLET (FP) PO SCH (23:40)
[2022-09-26] MEDS: INSULIN SLIDING SCALE (NOVOLOG) 1 VIAL SQ SCH (23:41)
[2022-09-26] MEDS: HEPARIN NA (PORCINE) 5,000 UNITS/ML 1ML VIAL SQ SCH (23:41)
[2022-09-27] MEDS: INSULIN SLIDING SCALE (NOVOLOG) 1 VIAL SQ SCH ×4 (07:09→22:03)
[2022-09-27] MEDS: HEPARIN NA (PORCINE) 5,000 UNITS/ML 1ML VIAL SQ SCH ×3 (07:23→21:47)
[2022-09-27 08:09] LABS: HEMATOCRIT 30.7 % (32.4-45.2); MCH 29.1 pg (25.7-33.7); MCHC 32.6 g/dl (32.0-36.0); MEAN CELL VOLUME 89.2 fl (80-96); MEAN PLT VOLUME 7.4 fl (7.5-11.1); PLATELET COUNT 845 10^3/uL (134-434); RBC 3.45 M/mm3 (3.60-5.2); RDW 14.6 % (11.6-15.6); WHITE BLOOD COUNT 10.2 K/mm3 (4.0-10.0)
[2022-09-27 08:32] LABS: POTASSIUM 4.9 mmol/L (3.5-5.1)
[2022-09-27 08:39] LABS: ALBUMIN 2.6 g/dl (3.4-5.0); BLOOD UREA NITROGEN 59.8 mg/dL (7-18); MAGNESIUM 1.3 mg/dL (1.8-2.4)
[2022-09-27 08:41] LABS: PHOSPHOROUS 3.8 mg/dL (2.5-4.9)
[2022-09-27 08:42] LABS: BILIRUBIN,TOTAL 0.4 mg/dL (0.2-1); CREATININE 2.5 mg/dL (0.55-1.3); TOT PROT 6.5 g/dl (6.4-8.2)
[2022-09-27 08:56] LABS: ANISOCYTOSIS 1+; MACROCYTOSIS 0
[2022-09-27] MEDS: ASPIRIN 81 MG CHEWABLE TABLETS PO SCH (09:53)
[2022-09-27] MEDS: FENOFIBRIC ACID 135 MG CAP PO SCH (09:54)
[2022-09-27] MEDS: METHIMAZOLE 10 MG TABLET PO SCH (09:54)
[2022-09-27] MEDS: PANTOPRAZOLE SOD 40 MG SUSPENSION PACKET PO SCH (09:54)
[2022-09-27] MEDS: INSULIN (LEVEMIR) 100 UNITS/ML UNITS SQ SCH (09:55)
[2022-09-27] MEDS ORDERED: METHIMAZOLE 5 MG TABLET PO SCH (10:00)
[2022-09-27] MEDS ORDERED: FENOFIBRATE 150 MG PO SCH (10:00)
[2022-09-27] MEDS: DOXYCYCLINE INJECTION 100 MG in DEXTROSE 5%-WATER 100 ML IVPB SCH ×2 (13:48→21:47)
[2022-09-27] MEDS: CEFTRIAXONE 1 GM in DEXTROSE 5%-WATER - 50 ML IVPB SCH (13:48)
[2022-09-27] MEDS: MAGNESIUM SULF 50% (8.12 MEQ/2 ML-1 GM VIAL) IVPB SCH ×2 (16:30→17:38)
[2022-09-27] MEDS: CYANOCOBALAMIN 1,000 MCG TABLET (FP) PO SCH (21:47)
[2022-09-27] MEDS: AMITRIPTYLINE HCL 25 MG TABLET PO SCH (21:47)
[2022-09-28] MEDS: INSULIN SLIDING SCALE (NOVOLOG) 1 VIAL SQ SCH ×4 (06:28→21:48)
[2022-09-28] MEDS: HEPARIN NA (PORCINE) 5,000 UNITS/ML 1ML VIAL SQ SCH ×3 (06:47→21:40)
[2022-09-28 07:16] LABS: HEMATOCRIT 29.5 % (32.4-45.2); HEMOGLOBIN 9.4 GM/dL (10.7-15.3); MCH 28.2 pg (25.7-33.7); MCHC 31.8 g/dl (32.0-36.0); MEAN CELL VOLUME 88.6 fl (80-96); MEAN PLT VOLUME 7.4 fl (7.5-11.1); PLATELET COUNT 783 10^3/uL (134-434); RBC 3.33 M/mm3 (3.60-5.2); RDW 14.7 % (11.6-15.6); WHITE BLOOD COUNT 7.1 K/mm3 (4.0-10.0)
[2022-09-28] MEDS: INSULIN (LEVEMIR) 100 UNITS/ML UNITS SQ SCH (08:01)
[2022-09-28 08:31] LABS: POTASSIUM 5.5 mmol/L (3.5-5.1)
[2022-09-28 08:38] LABS: CALCIUM 8.8 mg/dL (8.5-10.1)
[2022-09-28 08:39] LABS: ALBUMIN 2.5 g/dl (3.4-5.0); BLOOD UREA NITROGEN 49.4 mg/dL (7-18)
[2022-09-28 08:41] LABS: BILIRUBIN,TOTAL 0.3 mg/dL (0.2-1); MAGNESIUM 2.5 mg/dL (1.8-2.4); PHOSPHOROUS 3.3 mg/dL (2.5-4.9)
[2022-09-28 08:42] LABS: CREATININE 2.1 mg/dL (0.55-1.3)
[2022-09-28] MEDS: SODIUM ZIRCONIUM CYCLOSILICATE (LOKELMA) 5 GM PACKET PO SCH (09:39)
[2022-09-28] MEDS: METHIMAZOLE 10 MG TABLET PO SCH (09:44)
[2022-09-28] MEDS: PANTOPRAZOLE SOD 40 MG SUSPENSION PACKET PO SCH (09:44)
[2022-09-28] MEDS: ASPIRIN 81 MG CHEWABLE TABLETS PO SCH (09:44)
[2022-09-28] MEDS: CEFTRIAXONE 1 GM in DEXTROSE 5%-WATER - 50 ML IVPB SCH (09:45)
[2022-09-28] MEDS: DOXYCYCLINE INJECTION 100 MG in DEXTROSE 5%-WATER 100 ML IVPB SCH ×2 (09:46→21:41)
[2022-09-28] MEDS: FENOFIBRIC ACID 135 MG CAP PO SCH (09:47)
[2022-09-28 10:27] LABS: ANISOCYTOSIS 1+; MACROCYTOSIS 0
[2022-09-28] MEDS ORDERED: INSULIN (LEVEMIR) 100 UNITS/ML UNITS SQ SCH (16:31)
[2022-09-28] MEDS: AMITRIPTYLINE HCL 25 MG TABLET PO SCH (22:11)
[2022-09-29] MEDS: INSULIN SLIDING SCALE (NOVOLOG) 1 VIAL SQ SCH ×4 (06:21→22:29)
[2022-09-29] MEDS: HEPARIN NA (PORCINE) 5,000 UNITS/ML 1ML VIAL SQ SCH ×3 (06:40→22:28)
[2022-09-29 08:42] LABS: HEMATOCRIT 27.7 % (32.4-45.2); HEMOGLOBIN 9.4 GM/dL (10.7-15.3); MCH 29.2 pg (25.7-33.7); MCHC 33.9 g/dl (32.0-36.0); MEAN CELL VOLUME 86.1 fl (80-96); MEAN PLT VOLUME 6.8 fl (7.5-11.1); PLATELET COUNT 685 10^3/uL (134-434); RBC 3.22 M/mm3 (3.60-5.2); RDW 14.7 % (11.6-15.6); WHITE BLOOD COUNT 8.1 K/mm3 (4.0-10.0)
[2022-09-29 09:01] LABS: POTASSIUM 5.3 mmol/L (3.5-5.1)
[2022-09-29 09:07] LABS: ALBUMIN 2.4 g/dl (3.4-5.0); BLOOD UREA NITROGEN 43.3 mg/dL (7-18); CALCIUM 8.9 mg/dL (8.5-10.1); MAGNESIUM 2.2 mg/dL (1.8-2.4)
[2022-09-29 09:10] LABS: CREATININE 1.9 mg/dL (0.55-1.3)
[2022-09-29 09:11] LABS: BILIRUBIN,TOTAL 0.4 mg/dL (0.2-1); POTASSIUM PLASMA 4.4 mmol/L (3.5-5.1); TOT PROT 5.9 g/dl (6.4-8.2)
[2022-09-29] MEDS ORDERED: DEXTROSE 50%-WATER - 25 GM/50 ML VIAL IVPUSH ONE (09:30)
[2022-09-29] MEDS: METHIMAZOLE 10 MG TABLET PO SCH (10:58)
[2022-09-29] MEDS: SODIUM ZIRCONIUM CYCLOSILICATE (LOKELMA) 5 GM PACKET PO SCH (10:59)
[2022-09-29] MEDS: PANTOPRAZOLE SOD 40 MG SUSPENSION PACKET PO SCH (10:59)
[2022-09-29] MEDS: ASPIRIN 81 MG CHEWABLE TABLETS PO SCH (10:59)
[2022-09-29] MEDS: CEFTRIAXONE 1 GM in DEXTROSE 5%-WATER - 50 ML IVPB SCH (10:59)
[2022-09-29] MEDS: DOXYCYCLINE INJECTION 100 MG in DEXTROSE 5%-WATER 100 ML IVPB SCH ×2 (10:59→22:28)
[2022-09-29] MEDS: FENOFIBRIC ACID 135 MG CAP PO SCH (10:59)
[2022-09-29 11:39] LABS: ANISOCYTOSIS 0; MACROCYTOSIS 0
[2022-09-29] MEDS ORDERED: INSULIN (NOVOLOG) ASPART 100 UNITS/ML 10ML VIAL ONE ×2 (17:18→20:12)
[2022-09-29 18:28] LABS: BF WBC & OTHER NUCLEATED CELLS 278 /mm3
[2022-09-29 18:29] LABS: BODY FLUID MONOCYTE 36 %; BODYL FLD EOSINOPHIL 2 %
[2022-09-29] MEDS: oxyCODONE HCL 5 MG TABLET PO PRN (19:39)
[2022-09-29] MEDS: AMITRIPTYLINE HCL 25 MG TABLET PO SCH (22:28)
[2022-09-30] MEDS: HEPARIN NA (PORCINE) 5,000 UNITS/ML 1ML VIAL SQ SCH ×3 (06:49→21:40)
[2022-09-30] MEDS: INSULIN SLIDING SCALE (NOVOLOG) 1 VIAL SQ SCH ×4 (06:50→21:40)
[2022-09-30 08:09] LABS: HEMATOCRIT 27.5 % (32.4-45.2); HEMOGLOBIN 9.1 GM/dL (10.7-15.3); MCH 28.7 pg (25.7-33.7); MCHC 33.1 g/dl (32.0-36.0); MEAN CELL VOLUME 86.6 fl (80-96); MEAN PLT VOLUME 7.1 fl (7.5-11.1); PLATELET COUNT 670 10^3/uL (134-434); RBC 3.18 M/mm3 (3.60-5.2); WHITE BLOOD COUNT 6.9 K/mm3 (4.0-10.0)
[2022-09-30 08:45] LABS: POTASSIUM 4.7 mmol/L (3.5-5.1)
[2022-09-30 08:54] LABS: BLOOD UREA NITROGEN 41.1 mg/dL (7-18); CALCIUM 8.9 mg/dL (8.5-10.1); MAGNESIUM 1.7 mg/dL (1.8-2.4)
[2022-09-30 08:55] LABS: ALBUMIN 2.3 g/dl (3.4-5.0)
[2022-09-30 08:57] LABS: CREATININE 1.7 mg/dL (0.55-1.3); PHOSPHOROUS 4.1 mg/dL (2.5-4.9)
[2022-09-30 08:58] LABS: TOT PROT 5.8 g/dl (6.4-8.2)
[2022-09-30 08:59] LABS: BILIRUBIN,TOTAL 0.5 mg/dL (0.2-1)
[2022-09-30 09:07] LABS: ANISOCYTOSIS 0; MACROCYTOSIS 0
[2022-09-30] MEDS: SODIUM ZIRCONIUM CYCLOSILICATE (LOKELMA) 5 GM PACKET PO SCH (09:32)
[2022-09-30] MEDS: ASPIRIN 81 MG CHEWABLE TABLETS PO SCH (09:32)
[2022-09-30] MEDS: DOXYCYCLINE INJECTION 100 MG in DEXTROSE 5%-WATER 100 ML IVPB SCH (09:33)
[2022-09-30] MEDS: PANTOPRAZOLE SOD 40 MG SUSPENSION PACKET PO SCH (09:33)
[2022-09-30] MEDS: CEFTRIAXONE 1 GM in DEXTROSE 5%-WATER - 50 ML IVPB SCH (09:33)
[2022-09-30] MEDS: FENOFIBRIC ACID 135 MG CAP PO SCH (09:34)
[2022-09-30] MEDS: VITAMIN B COMP W-C 1 EA TABLET (NEPHRO-VITE) PO SCH (09:34)
[2022-09-30] MEDS: METHIMAZOLE 10 MG TABLET PO SCH (09:34)
[2022-09-30] MEDS ORDERED: MAGNESIUM OXIDE 400 MG TABLET (FP) PO ONE (13:17)
[2022-09-30] MEDS: BUMETANIDE 1 MG TABLET PO SCH (13:41)
[2022-09-30] MEDS: DOXYCYCLINE HYCLATE 100 MG CAPSULE PO SCH (17:08)
[2022-09-30] MEDS: AMITRIPTYLINE HCL 25 MG TABLET PO SCH (21:40)
[2022-10-01] MEDS: oxyCODONE HCL 5 MG TABLET PO PRN (02:06)
[2022-10-01] MEDS: INSULIN SLIDING SCALE (NOVOLOG) 1 VIAL SQ SCH ×4 (06:07→21:50)
[2022-10-01] MEDS: HEPARIN NA (PORCINE) 5,000 UNITS/ML 1ML VIAL SQ SCH ×3 (06:14→21:48)
[2022-10-01 08:12] LABS: HEMATOCRIT 28.9 % (32.4-45.2); HEMOGLOBIN 9.5 GM/dL (10.7-15.3); MCH 28.3 pg (25.7-33.7); MCHC 32.7 g/dl (32.0-36.0); MEAN CELL VOLUME 86.4 fl (80-96); PLATELET COUNT 659 10^3/uL (134-434); RBC 3.34 M/mm3 (3.60-5.2); RDW 15.2 % (11.6-15.6); WHITE BLOOD COUNT 6.5 K/mm3 (4.0-10.0)
[2022-10-01 08:17] LABS: POTASSIUM 4.5 mmol/L (3.5-5.1)
[2022-10-01 08:21] LABS: ALBUMIN 2.4 g/dl (3.4-5.0); BLOOD UREA NITROGEN 35.1 mg/dL (7-18); MAGNESIUM 1.6 mg/dL (1.8-2.4)
[2022-10-01 08:24] LABS: CREATININE 1.5 mg/dL (0.55-1.3); PHOSPHOROUS 3.8 mg/dL (2.5-4.9)
[2022-10-01 08:25] LABS: TOT PROT 5.9 g/dl (6.4-8.2)
[2022-10-01 08:26] LABS: BILIRUBIN,TOTAL 0.5 mg/dL (0.2-1)
[2022-10-01] MEDS: ASPIRIN 81 MG CHEWABLE TABLETS PO SCH (09:08)
[2022-10-01] MEDS: DOXYCYCLINE HYCLATE 100 MG CAPSULE PO SCH ×2 (09:08→17:00)
[2022-10-01] MEDS: VITAMIN B COMP W-C 1 EA TABLET (NEPHRO-VITE) PO SCH (09:08)
[2022-10-01] MEDS: PANTOPRAZOLE SOD 40 MG SUSPENSION PACKET PO SCH (09:08)
[2022-10-01] MEDS: METHIMAZOLE 10 MG TABLET PO SCH (09:08)
[2022-10-01] MEDS: CEFTRIAXONE 1 GM in DEXTROSE 5%-WATER - 50 ML IVPB SCH (09:09)
[2022-10-01] MEDS: FENOFIBRIC ACID 135 MG CAP PO SCH (09:09)
[2022-10-01] MEDS: BUMETANIDE 1 MG TABLET PO SCH (09:09)
[2022-10-01] MEDS: SODIUM ZIRCONIUM CYCLOSILICATE (LOKELMA) 5 GM PACKET PO SCH (09:10)
[2022-10-01] MEDS ORDERED: INSULIN (NOVOLOG) ASPART 100 UNITS/ML 10ML VIAL ONE ×2 (11:07→16:14)
[2022-10-01] MEDS ORDERED: MAGNESIUM SULF 50% (8.12 MEQ/2 ML-1 GM VIAL) IVPB ONE (11:59)
[2022-10-01] MEDS: AMITRIPTYLINE HCL 25 MG TABLET PO SCH (21:48)
[2022-10-01] MEDS: SENNOSIDES 8.8 MG/5 ML SYRUP PO SCH (21:49)
[2022-10-02] MEDS: INSULIN SLIDING SCALE (NOVOLOG) 1 VIAL SQ SCH ×4 (06:50→21:59)
[2022-10-02] MEDS: HEPARIN NA (PORCINE) 5,000 UNITS/ML 1ML VIAL SQ SCH ×3 (06:51→21:52)
[2022-10-02 08:47] LABS: HEMATOCRIT 30.2 % (32.4-45.2); HEMOGLOBIN 9.8 GM/dL (10.7-15.3); MCH 28.7 pg (25.7-33.7); MCHC 32.4 g/dl (32.0-36.0); MEAN CELL VOLUME 88.6 fl (80-96); MEAN PLT VOLUME 7.3 fl (7.5-11.1); PLATELET COUNT 680 10^3/uL (134-434); RBC 3.41 M/mm3 (3.60-5.2); RDW 14.8 % (11.6-15.6); WHITE BLOOD COUNT 7.2 K/mm3 (4.0-10.0)
[2022-10-02 09:01] LABS: POTASSIUM 4.5 mmol/L (3.5-5.1)
[2022-10-02 09:03] LABS: ALBUMIN 2.4 g/dl (3.4-5.0); BLOOD UREA NITROGEN 32.2 mg/dL (7-18); CALCIUM 8.7 mg/dL (8.5-10.1)
[2022-10-02 09:06] LABS: PHOSPHOROUS 3.5 mg/dL (2.5-4.9)
[2022-10-02 09:07] LABS: CREATININE 1.4 mg/dL (0.55-1.3)
[2022-10-02 09:08] LABS: BILIRUBIN,TOTAL 0.6 mg/dL (0.2-1); TOT PROT 5.8 g/dl (6.4-8.2)
[2022-10-02] MEDS: CEFTRIAXONE 1 GM in DEXTROSE 5%-WATER - 50 ML IVPB SCH (10:41)
[2022-10-02] MEDS: COLLAGENASE CLOSTRIDIUM HIST. 30 GRAMS TUBE TP SCH (10:41)
[2022-10-02] MEDS: METHIMAZOLE 10 MG TABLET PO SCH (10:42)
[2022-10-02] MEDS: BUMETANIDE 1 MG TABLET PO SCH (10:42)
[2022-10-02] MEDS: ASPIRIN 81 MG CHEWABLE TABLETS PO SCH (10:42)
[2022-10-02] MEDS: VITAMIN B COMP W-C 1 EA TABLET (NEPHRO-VITE) PO SCH (10:42)
[2022-10-02] MEDS: PANTOPRAZOLE SOD 40 MG SUSPENSION PACKET PO SCH (10:42)
[2022-10-02] MEDS: DOXYCYCLINE HYCLATE 100 MG CAPSULE PO SCH ×2 (10:42→17:25)
[2022-10-02] MEDS: FENOFIBRIC ACID 135 MG CAP PO SCH (10:43)
[2022-10-02] MEDS ORDERED: INSULIN (NOVOLOG) ASPART 100 UNITS/ML 10ML VIAL ONE ×2 (12:21→21:00)
[2022-10-02] MEDS ORDERED: DOCUSATE SODIUM 100 MG CAPSULE (FP) PO ONE (14:57)
[2022-10-02 15:08] LABS: BODY FLUID ALBUMIN 2.7 g/dL (Not Estab.)
[2022-10-02] MEDS: PANTOPRAZOLE 40 MG TABLET PO SCH (15:27)
[2022-10-02 15:46] VITALS: BMI 33.7
[2022-10-02] MEDS: AMINO ACIDS/PROTEIN HYDROLYS 30 ML LIQUID.PKT PO SCH (17:25)
[2022-10-02] MEDS: ROSUVASTATIN CA 10 MG TABLET PO SCH (21:51)
[2022-10-02] MEDS: SENNOSIDES 8.8 MG/5 ML SYRUP PO SCH (21:52)
[2022-10-02] MEDS: AMITRIPTYLINE HCL 25 MG TABLET PO SCH (21:52)
[2022-10-03] MEDS: INSULIN SLIDING SCALE (NOVOLOG) 1 VIAL SQ SCH ×4 (06:40→22:00)
[2022-10-03] MEDS: HEPARIN NA (PORCINE) 5,000 UNITS/ML 1ML VIAL SQ SCH (06:42)
[2022-10-03 07:42] LABS: HEMATOCRIT 30.2 % (32.4-45.2); HEMOGLOBIN 9.7 GM/dL (10.7-15.3); MCH 28.5 pg (25.7-33.7); MCHC 32.2 g/dl (32.0-36.0); MEAN CELL VOLUME 88.7 fl (80-96); MEAN PLT VOLUME 7.4 fl (7.5-11.1); PLATELET COUNT 649 10^3/uL (134-434); RBC 3.41 M/mm3 (3.60-5.2); RDW 15.1 % (11.6-15.6); WHITE BLOOD COUNT 8.1 K/mm3 (4.0-10.0)
[2022-10-03 08:03] LABS: POTASSIUM 4.5 mmol/L (3.5-5.1)
[2022-10-03 08:05] LABS: CALCIUM 8.8 mg/dL (8.5-10.1)
[2022-10-03 08:06] LABS: ALBUMIN 2.4 g/dl (3.4-5.0); BLOOD UREA NITROGEN 38.7 mg/dL (7-18); MAGNESIUM 1.7 mg/dL (1.8-2.4)
[2022-10-03 08:09] LABS: CREATININE 1.4 mg/dL (0.55-1.3); PHOSPHOROUS 3.6 mg/dL (2.5-4.9)
[2022-10-03 08:10] LABS: TOT PROT 5.7 g/dl (6.4-8.2)
[2022-10-03 08:24] LABS: BILIRUBIN,TOTAL 0.6 mg/dL (0.2-1)
[2022-10-03] MEDS: AMINO ACIDS/PROTEIN HYDROLYS 30 ML LIQUID.PKT PO SCH (09:32)
[2022-10-03] MEDS: CEFTRIAXONE 1 GM in DEXTROSE 5%-WATER - 50 ML IVPB SCH (10:07)
[2022-10-03] MEDS: METHIMAZOLE 10 MG TABLET PO SCH (10:08)
[2022-10-03] MEDS: PANTOPRAZOLE 40 MG TABLET PO SCH (10:08)
[2022-10-03] MEDS: ASPIRIN 81 MG CHEWABLE TABLETS PO SCH (10:08)
[2022-10-03] MEDS: DOXYCYCLINE HYCLATE 100 MG CAPSULE PO SCH ×2 (10:08→17:35)
[2022-10-03] MEDS: VITAMIN B COMP W-C 1 EA TABLET (NEPHRO-VITE) PO SCH (10:08)
[2022-10-03] MEDS: BUMETANIDE 1 MG TABLET PO SCH (10:08)
[2022-10-03] MEDS: FENOFIBRIC ACID 135 MG CAP PO SCH (10:08)
[2022-10-03] MEDS ORDERED: morphine SULFATE 4 MG/ML VIAL IVPUSH ONE (12:30)
[2022-10-03] MEDS: COLLAGENASE CLOSTRIDIUM HIST. 30 GRAMS TUBE TP SCH (13:02)
[2022-10-03] MEDS ORDERED: INSULIN (NOVOLOG) ASPART 100 UNITS/ML 10ML VIAL ONE ×3 (13:03→21:57)
[2022-10-03 18:09] LABS: BF WBC & OTHER NUCLEATED CELLS 122 /mm3
[2022-10-03 19:52] LABS: BODY FLUID MACROPHAGES 75 %; BODY FLUID MESOTHELIAL 1 %; BODYL FLD EOSINOPHIL 1 %
[2022-10-03 19:53] LABS: BODY FLUID MONOCYTE 7 %
[2022-10-03] MEDS: ROSUVASTATIN CA 10 MG TABLET PO SCH (21:52)
[2022-10-03] MEDS: AMITRIPTYLINE HCL 25 MG TABLET PO SCH (21:52)
[2022-10-03] MEDS: SENNOSIDES 8.8 MG/5 ML SYRUP PO SCH (21:53)
[2022-10-04] MEDS: INSULIN SLIDING SCALE (NOVOLOG) 1 VIAL SQ SCH ×3 (06:00→18:05)
[2022-10-04] MEDS: HEPARIN NA (PORCINE) 5,000 UNITS/ML 1ML VIAL SQ SCH ×2 (06:00→13:57)
[2022-10-04 08:08] LABS: HEMATOCRIT 29.7 % (32.4-45.2); MCH 29.2 pg (25.7-33.7); MCHC 33.6 g/dl (32.0-36.0); MEAN CELL VOLUME 86.8 fl (80-96); MEAN PLT VOLUME 7.1 fl (7.5-11.1); PLATELET COUNT 606 10^3/uL (134-434); RBC 3.42 M/mm3 (3.60-5.2); RDW 15.2 % (11.6-15.6); WHITE BLOOD COUNT 8.1 K/mm3 (4.0-10.0)
[2022-10-04 08:27] LABS: POTASSIUM 4.6 mmol/L (3.5-5.1)
[2022-10-04 08:38] LABS: ALBUMIN 2.4 g/dl (3.4-5.0)
[2022-10-04 08:39] LABS: BLOOD UREA NITROGEN 49.3 mg/dL (7-18); CALCIUM 9.1 mg/dL (8.5-10.1); MAGNESIUM 1.5 mg/dL (1.8-2.4)
[2022-10-04 08:42] LABS: CREATININE 1.6 mg/dL (0.55-1.3)
[2022-10-04 08:43] LABS: PHOSPHOROUS 3.9 mg/dL (2.5-4.9)
[2022-10-04 08:44] LABS: BILIRUBIN,TOTAL 0.5 mg/dL (0.2-1); TOT PROT 5.9 g/dl (6.4-8.2)
[2022-10-04] MEDS: CEFTRIAXONE 1 GM in DEXTROSE 5%-WATER - 50 ML IVPB SCH (10:51)
[2022-10-04] MEDS: ASPIRIN 81 MG CHEWABLE TABLETS PO SCH (10:52)
[2022-10-04] MEDS: METHIMAZOLE 10 MG TABLET PO SCH (10:52)
[2022-10-04] MEDS: PANTOPRAZOLE 40 MG TABLET PO SCH (10:52)
[2022-10-04] MEDS: AMINO ACIDS/PROTEIN HYDROLYS 30 ML LIQUID.PKT PO SCH (10:52)
[2022-10-04] MEDS: VITAMIN B COMP W-C 1 EA TABLET (NEPHRO-VITE) PO SCH (10:52)
[2022-10-04] MEDS: BUMETANIDE 1 MG TABLET PO SCH (10:52)
[2022-10-04] MEDS: DOXYCYCLINE HYCLATE 100 MG CAPSULE PO SCH (10:52)
[2022-10-04] MEDS: FENOFIBRIC ACID 135 MG CAP PO SCH (10:53)
[2022-10-04] MEDS: COLLAGENASE CLOSTRIDIUM HIST. 30 GRAMS TUBE TP SCH (10:53)
[2022-10-04] MEDS ORDERED: MAGNESIUM SULF 50% (8.12 MEQ/2 ML-1 GM VIAL) IVPB ONE (13:16)
[2022-10-04 15:19] VITALS: BP 145/80; PULSE 102; RESP 20; TEMP 98.3
[2022-10-06 16:08] LABS: BODY FLUID ALBUMIN 2.6 g/dL (Not Estab.)
== END 2022-10-04 18:30 | disposition home or self-care (01) | DRG 292 ==
LOC: JER 15:05 → JERBED 18:11 → J4W 19:11
PROVIDERS: ADMIT Internal Medicine; ATTEND Internal Medicine
PROC: 0W9B3ZZ Drainage of Left Pleural Cavity, Percutaneous Approach (ICD-10-PCS; principal; 2022-09-29)
PROC: 0W9B3ZZ Drainage of Left Pleural Cavity, Percutaneous Approach (ICD-10-PCS; 2022-09-29)
DX: I13.0 Hypertensive heart and chronic kidney disease with heart failure and stage 1 through stage 4 chronic kidney disease, or unspecified chronic kidney disease (principal); I50.32 Chronic diastolic (congestive) heart failure; J90 Pleural effusion, not elsewhere classified; J98.11 Atelectasis; N17.9 Acute kidney failure, unspecified; I25.10 Atherosclerotic heart disease of native coronary artery without angina pectoris; K21.9 Gastro-esophageal reflux disease without esophagitis; E78.00 Pure hypercholesterolemia, unspecified; E05.90 Thyrotoxicosis, unspecified without thyrotoxic crisis or storm; N18.30 Chronic kidney disease, stage 3 unspecified; E11.51 Type 2 diabetes mellitus with diabetic peripheral angiopathy without gangrene; D75.839 Thrombocytosis, unspecified; R00.0 Tachycardia, unspecified; M79.7 Fibromyalgia; E11.22 Type 2 diabetes mellitus with diabetic chronic kidney disease; M10.9 Gout, unspecified; N20.0 Calculus of kidney; Z95.5 Presence of coronary angioplasty implant and graft; E87.5 Hyperkalemia; R91.1 Solitary pulmonary nodule
CPT/HCPCS: 36415; 71045-TC-FY; 71046-TC-FY; 71250-TC; 76942; 80053; 82042; 82150; 82465; 82945; 82962; 83615; 83735; 83986; 84100; 84132; 84157; 84439; 84443; 84478; 84481; 84484; 85025; 85027; 85610; 85730; 86682; 87040; 87070; 87075; 87102; 87116; 87205; 87206; 87210; 87899; 88108; 88305-TC; 93005; 93010; 93970-TC; 94010; 97116-GP; 97162-GP; 99285-25; J1644

== ENCOUNTER 2022-12-28 16:03 | Emergency (ER) | payer OTHER ==
[2022-12-28 16:15] VITALS: BP 114/57; PULSE 90; RESP 18; TEMP 97.9; BMI 34.3
== END 2022-12-28 17:08 | disposition left against medical advice (07) ==
LOC: JER 16:03 → JERFT 16:03
DX: S99.922A Unspecified injury of left foot, initial encounter (principal); W20.8XXA Other cause of strike by thrown, projected or falling object, initial encounter
CPT/HCPCS: 99281-25

== ENCOUNTER 2023-11-04 13:45 | Emergency (ER) | payer OTHER ==
[2023-11-04 13:52] VITALS: BP 114/73; PULSE 81; RESP 18; TEMP 97.6; BMI 35.6
[2023-11-04 15:42] LABS: POTASSIUM 5.2 mmol/L (3.5-5.1)
[2023-11-04 15:43] LABS: BLOOD UREA NITROGEN 43.3 mg/dL (7-18); CALCIUM 8.7 mg/dL (8.5-10.1)
[2023-11-04 15:47] LABS: CREATININE 2.1 mg/dL (0.55-1.3)
== END 2023-11-04 17:00 | disposition home or self-care (01) ==
LOC: JER 13:45
DX: E87.5 Hyperkalemia (principal)
CPT/HCPCS: 36415; 80048; 82962; 99283-25

== ENCOUNTER 2023-11-23 06:07 | Day surgery (SDC) | payer OTHER ==
[2023-11-23] MEDS ORDERED: ceFAZolin SODIUM 1 GM VIAL ONE (07:10)
[2023-11-23] MEDS ORDERED: ONDANSETRON 4 MG/2 ML VIAL ONE (07:10)
[2023-11-23] MEDS ORDERED: DEXAMETHASONE SOD PHOSPHATE 4 MG/1 ML VIAL ONE (07:10)
[2023-11-23] MEDS ORDERED: ePHEDrine SULFATE 50 MG/1 ML AMPULE ONE (07:10)
[2023-11-23] MEDS ORDERED: TRANEXAMIC ACID 1000 MG/10 ML VIAL ONE ×2 (07:10→07:24)
[2023-11-23] MEDS ORDERED: PROPOFOL 20 ML ONE ×2 (07:11→11:46)
[2023-11-23] MEDS ORDERED: MIDAZOLAM HCL 2 MG/2 ML SINGLE DOSE VIAL ONE (07:11)
[2023-11-23] MEDS ORDERED: ROCURONIUM BROMIDE 50 MG/5 ML SYRINGE ONE ×2 (07:12→10:49)
[2023-11-23] MEDS ORDERED: VANCOMYCIN 1,000 MG VIAL (RESTRICTED TO ID ONLY) ONE ×2 (07:23→11:41)
[2023-11-23] MEDS ORDERED: BUPIVACAINE HCL/PF 0.5% (5 MG/ML) 30 ML VIAL IJ ONE (07:49)
[2023-11-23] MEDS ORDERED: BUPIVACAINE LIPOSOME/PF (EXPAREL) 266 MG/20 ML VIAL ONE (07:49)
[2023-11-23] MEDS ORDERED: SUGAMMADEX SODIUM 200 MG/2 ML VIAL ONE (11:37)
[2023-11-23] MEDS ORDERED: MAGNESIUM HYDROX 2400MG/30ML ORAL SUSPENSION 30 ML CUP PO PRN (12:50)
[2023-11-23] MEDS ORDERED: MAG HYDROX/AL HYDROX/SIMETH 30 ML UNIT-DOSE CUP PO PRN (12:50)
[2023-11-23] MEDS ORDERED: LACTATED RINGERS SOLUTION 1,000 ML IV SCH (13:00)
[2023-11-23] MEDS ORDERED: PROMETHAZINE HCL 25 MG/1 ML VIAL ONE (13:17)
[2023-11-23] MEDS ORDERED: PROMETHAZINE HCL 25 MG/1 ML VIAL IVPB PRN (13:37)
[2023-11-23 15:24] LABS: HEMOGLOBIN 7.3 G/dL (10.7-15.3); MCH 30.9 pg (25.7-33.7); MCHC 31.6 g/dl (32.0-36.0); MEAN CELL VOLUME 97.9 fl (80-96); MEAN PLT VOLUME 8.4 fl (7.5-11.1); PLATELET COUNT 166.6 10^3/uL (134-434); RBC 2.35 10^6/uL (3.60-5.2); RDW 13.8 % (11.6-15.6); WHITE BLOOD COUNT 9.3 10^3/uL (4.0-10.8)
[2023-11-23 15:25] LABS: ANION GAP 4 mmol/L (4-13); CHLORIDE 130 mmol/L (98-107); CO2 12 mmol/L (21-32); CREATININE 0.7 mg/dl (0.6-1.3); GLUCOSE,RANDOM 55 mg/dl (74-106); SODIUM 146 mmol/L (136-145)
[2023-11-23 15:34] LABS: CALCIUM 3.5 mg/dl (8.5-10.1); POTASSIUM 2.3 mmol/L (3.5-5.1)
[2023-11-23] MEDS: INSULIN ASPART SLIDING SCALE (NOVOLOG) 1 VIAL SQ SCH ×2 (16:52→22:36)
[2023-11-23 17:02] LABS: CREATININE 1.4 mg/dl (0.6-1.3); POTASSIUM 4.1 mmol/L (3.5-5.1)
[2023-11-23 17:05] LABS: CALCIUM 6.7 mg/dl (8.5-10.1)
[2023-11-23] MEDS: CEFAZOLIN SODIUM 2 GM in DEXTROSE 5%-WATER 100 ML IVPB SCH (18:06)
[2023-11-23] MEDS: SODIUM CHLORIDE 1,000 ML IV STA (18:07)
[2023-11-23] MEDS: CALCIUM (OYSTER SHELL) 500 MG TABLET (FP) PO SCH (18:10)
[2023-11-23 20:23] LABS: HEMOGLOBIN 10.8 G/dL (10.7-15.3); MCH 30.7 pg (25.7-33.7); MCHC 31.6 g/dl (32.0-36.0); MEAN CELL VOLUME 96.8 fl (80-96); MEAN PLT VOLUME 8.5 fl (7.5-11.1); PLATELET COUNT 272.9 10^3/uL (134-434); RBC 3.51 10^6/uL (3.60-5.2); RDW 14.4 % (11.6-15.6); WHITE BLOOD COUNT 11.5 10^3/uL (4.0-10.8)
[2023-11-23] MEDS: ONDANSETRON 4 MG/2 ML VIAL IVPUSH PRN (21:00)
[2023-11-23] MEDS: METHIMAZOLE 5 MG TABLET PO SCH (21:12)
[2023-11-23] MEDS: AMITRIPTYLINE HCL 25 MG TABLET PO SCH (21:12)
[2023-11-23] MEDS: MAGNESIUM OXIDE 400 MG TABLET (FP) PO SCH (21:12)
[2023-11-23] MEDS: SENNOSIDES/DOCUSATE COMBO (SENNA PLUS) TABLET (UD) PO SCH (21:12)
[2023-11-23] MEDS: ATORVASTATIN CA 10 MG TABLET (FP) PO SCH (21:12)
[2023-11-23] MEDS: CYANOCOBALAMIN 1,000 MCG TABLET (FP) PO SCH (21:13)
[2023-11-23] MEDS ORDERED: PATIENT'S OWN MEDICATION (NON-FORMULARY) (Simvastatin 40 MG Tablet) PO SCH (22:00)
[2023-11-23] MEDS: oxyCODONE HCL 5 MG TABLET PO PRN (22:47)
[2023-11-24] MEDS: CEFAZOLIN SODIUM 2 GM in DEXTROSE 5%-WATER 100 ML IVPB SCH (02:15)
[2023-11-24] MEDS: ASPIRIN 325 MG TABLET PO SCH (08:25)
[2023-11-24 08:51] LABS: HEMATOCRIT 31.6 % (32.4-45.2); HEMOGLOBIN 9.8 G/dL (10.7-15.3); MCH 30.3 pg (25.7-33.7); MEAN CELL VOLUME 97.4 fl (80-96); PLATELET COUNT 249.9 10^3/uL (134-434); RBC 3.24 10^6/uL (3.60-5.2); RDW 14.1 % (11.6-15.6); WHITE BLOOD COUNT 8.1 10^3/uL (4.0-10.8)
[2023-11-24 09:01] LABS: CALCIUM 8.1 mg/dl (8.5-10.1); CREATININE 1.6 mg/dl (0.6-1.3); POTASSIUM 4.7 mmol/L (3.5-5.1)
[2023-11-24] MEDS ORDERED: ACETAMINOPHEN 1000 MG/100 ML BAG IVPB PRN (09:20)
[2023-11-24] MEDS ORDERED: PATIENT'S OWN MEDICATION (NON-FORMULARY) (Iron [Iron] 18 MG Tablet) PO SCH (10:00)
[2023-11-24] MEDS ORDERED: PANTOPRAZOLE SOD 40 MG SUSPENSION PACKET PO SCH (10:00)
[2023-11-24] MEDS ORDERED: FENOFIBRATE 150 MG PO SCH (10:00)
[2023-11-24] MEDS ORDERED: MULTIVITAMIN PO SCH (10:00)
[2023-11-24] MEDS: FENOFIBRIC ACID 135 MG CAP PO SCH (10:06)
[2023-11-24] MEDS: EMPAGLIFLOZIN (JARDIANCE) 10 MG TABLET PO SCH (10:06)
[2023-11-24] MEDS: ESCITALOPRAM OXALATE 10 MG TABLET PO SCH (10:06)
[2023-11-24] MEDS: PANTOPRAZOLE 40 MG TABLET PO SCH (10:06)
[2023-11-24] MEDS: MULTIVITAMINS (DAILY MVI) TABLET (FP) PO SCH (10:06)
[2023-11-24] MEDS: FERROUS SO4 325 MG TABLET (FP) PO SCH (10:06)
[2023-11-24] MEDS: CEPHALEXIN MONOHYDRATE 500 MG CAPSULE (UD) PO SCH (17:38)
[2023-11-24] MEDS: oxyCODONE HCL 5 MG TABLET PO PRN (19:49)
[2023-11-25 08:16] LABS: HEMATOCRIT 29.9 % (32.4-45.2); HEMOGLOBIN 9.5 G/dL (10.7-15.3); MCH 30.6 pg (25.7-33.7); MCHC 31.6 g/dl (32.0-36.0); MEAN CELL VOLUME 96.7 fl (80-96); MEAN PLT VOLUME 8.4 fl (7.5-11.1); PLATELET COUNT 240.1 10^3/uL (134-434); RBC 3.09 10^6/uL (3.60-5.2); RDW 14.8 % (11.6-15.6); WHITE BLOOD COUNT 8.3 10^3/uL (4.0-10.8)
[2023-11-25 09:37] VITALS: BP 166/78; PULSE 74; RESP 11; TEMP 97.7
[2023-11-25 13:15] VITALS: BMI 38.6
[2023-11-29] MEDS ORDERED: ERGOCALCIFEROL (VIT D2) 50,000 UNIT (1.25 MG) CAPSULE PO SCH (10:00)
== END 2023-11-25 12:30 | disposition home or self-care (01) ==
LOC: SUATTDRO 06:07 → FASU 06:07 → FASUSAT 06:07 → FM/S 14:07 → FASUSAT 11-25 12:30
PROC: 0RRJ00Z Replacement of Right Shoulder Joint with Reverse Ball and Socket Synthetic Substitute, Open Approach (ICD-10-PCS; principal; 2023-11-23 09:11)
DX: M19.012 Primary osteoarthritis, left shoulder (principal); M75.22 Bicipital tendinitis, left shoulder; M75.102 Unspecified rotator cuff tear or rupture of left shoulder, not specified as traumatic; T84.84XA Pain due to internal orthopedic prosthetic devices, implants and grafts, initial encounter; X58.XXXA Exposure to other specified factors, initial encounter; Y92.9 Unspecified place or not applicable; Y93.9 Activity, unspecified; I11.0 Hypertensive heart disease with heart failure; I50.9 Heart failure, unspecified; N28.9 Disorder of kidney and ureter, unspecified
CPT/HCPCS: 20680; 23472; C1713; 36415; 73030-TC-LT-FY; 80048; 82962; 85027; 86850; 86900; 86901; 87070; 87205; 88300-TC; 88305-TC; 88311-TC; 94760; 97116-GP; 97162-GP; C1776